=== PATIENT | male | born 1940 | race Caucasian/White ===

== ENCOUNTER → 2016-11-04 | Outpatient (CLI) | payer MEDICARE ==
[~2016-11-04] MED LIST: ACET-93 PO; ACET325T49 PO; ACID1TAB5 PO; ASP81TEC; ASP81TEC PO; ATEN50TA PO; ATN50T PO; ATOR40TA; BENZ100C18 PO; CALC-654 PO; CALC1TAB38 PO; CARB1TAB19 PO; CEFP500T4 PO; CLAR-19 PO; CLD600T; CLIN-62 PO; COLE1TAB PO; COUGH MED; DIVA125T3 PO; DONE10TA41 PO; DOXA4TAB2 PO; DXZS4T; ESCI20TA45 PO; ESOM20CA; FEXO60CA19; FINA5TAB6 PO; GLYC2TAB PO; IMIP50TA4 PO; IPRA3AMP19 IH; KCL20TCR; KCL20TCR PO; LISI40TA PO; LORA1TAB PO; LSNP20T PO; MAGN400T6 PO; MAGNESIUM; METO50TA2 PO; MGX400T; MULT1CAP27 PO; MULT1TAB63; MULT1TAB69 PO; OMEP-10 PO; OXYB10TA; PANT40TA3 PO; POLY17PO23 PO; PRAV40TA PO; PRD20T PO; PRED5TAB PO; PRILOSEC OTC; PRV20T; RMP5C; SIMV20TA3 PO; SUCR1TAB PO; TMSL.4C; TOLTA4; TRAM50TA2 PO; WARF2TAB PO; WARF4TAB PO; WARF4TAB9 PO; WARF5TAB PO; WRF1T; WRF2T PO; WRF3T
[2016-11-04 11:50] LABS: ABG BASE EXCESS 1.6 MMOL/L (-2.5-2.5); ABG HCO3 25 MMOL/L (23-27); ABG OXYGEN SATURATION 97 % (94-100); ABG PCO2 38 MMHG (35-45); ABG PO2 83 MMHG (79-93); ABG TCO2 26.6 MMOL/L (21.0-31.0)
[2016-11-04 11:53] LABS: ABG PH 7.44 (7.37-7.43); PATIENT TEMP 98.6
== END ==
LOC: HH 11:43
PROVIDERS: ATTEND Internal Medicine
DX: R53.1 Weakness (principal)
CPT/HCPCS: 82805

== ENCOUNTER → 2017-03-20 | Outpatient (CLI) | payer MEDICARE ==
[2017-03-20 21:05] LABS: BILIRUBIN,URINE NEGATIVE (NEGATIVE); KETONES,URINE NEGATIVE (NEGATIVE); LEUKOCYTE ESTERASE ,URINE 2+ (NEGATIVE); NITRITE,URINE POSITIVE (NEGATIVE); PH,URINE 5 (5-9); PROTEIN,URINE NEGATIVE (NEGATIVE); UROBILINOGEN,URINE NORMAL (NORMAL)
[2017-03-20 21:12] LABS: WBC,URINE >100 /HPF
== END ==
LOC: LABNPT 21:00
PROVIDERS: ATTEND Internal Medicine
DX: N39.0 Urinary tract infection, site not specified (principal)
CPT/HCPCS: 81000; 87088; 87186

== ENCOUNTER → 2017-05-29 | Outpatient (CLI) | payer MEDICARE ==
[2017-05-29 21:36] LABS: BILIRUBIN,URINE NEGATIVE (NEGATIVE); KETONES,URINE NEGATIVE (NEGATIVE); LEUKOCYTE ESTERASE ,URINE NEGATIVE (NEGATIVE); NITRITE,URINE NEGATIVE (NEGATIVE); PH,URINE 5 (5-9); PROTEIN,URINE NEGATIVE (NEGATIVE); UROBILINOGEN,URINE NORMAL (NORMAL)
[2017-05-29 21:47] LABS: HYALINE CASTS, URINE RARE /LPF; SQUAMOUS EPITHELIAL CELL,UR 25-50 /HPF; WBC,URINE 0-2 /HPF
== END ==
LOC: LABNPT 21:31
PROVIDERS: ATTEND Internal Medicine
DX: R41.82 Altered mental status, unspecified (principal)
CPT/HCPCS: 81000

== ENCOUNTER → 2018-04-12 | Outpatient (CLI) | payer MEDICARE ==
[~2018-04-12] MED LIST changes: -DIVA125T3 PO; +DIVA125T32 PO; +METO50TA15 PO; -METO50TA2 PO
[2018-04-12 19:20] LABS: BILIRUBIN,URINE NEGATIVE (NEGATIVE); CLARITY,URINE CLEAR; COLOR,URINE YELLOW; GLUCOSE, URINE (UA) NEGATIVE (NEGATIVE); KETONES,URINE NEGATIVE (NEGATIVE); LEUKOCYTE ESTERASE ,URINE NEGATIVE (NEGATIVE); NITRITE,URINE NEGATIVE (NEGATIVE); PH,URINE 6 (5-9); PROTEIN,URINE NEGATIVE (NEGATIVE); UROBILINOGEN,URINE NORMAL (NORMAL)
[2018-04-12 19:37] LABS: SQUAMOUS EPITHELIAL CELL,UR RARE /HPF
== END ==
LOC: CVS 19:14
PROVIDERS: ATTEND Internal Medicine
DX: R45.1 Restlessness and agitation (principal)
CPT/HCPCS: 81000

== ENCOUNTER → 2018-09-11 | Outpatient (CLI) | payer MEDICARE ==
[~2018-09-11] MED LIST changes: -POLY17PO23 PO; +POLY17PO31 PO
== END ==
LOC: CVS 12:52
PROVIDERS: ATTEND Family Medicine
DX: R13.10 Dysphagia, unspecified (principal); M62.81 Muscle weakness (generalized); R26.81 Unsteadiness on feet; R41.0 Disorientation, unspecified
CPT/HCPCS: 87804

== ENCOUNTER 2018-09-16 15:43 | Emergency (ER) | payer MEDICARE ==
[~2018-09-16] VITALS: Ht 175.3 cm; Wt 81.6 kg
--- OUTSIDE RECORDS SUMMARY | 2018-09-16 15:51 | XMS REPORT ---
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 Active 074745482950853 Problem Type 2 diabetes mellitus with hyperglycemia E11.65 Active 19359684 Problem Gastroesophageal reflux disease, esophagitis presence not specified K21.9 Active 285038950 Problem Type 2 diabetes mellitus without complications E11.9 Active 711192405 Problem halfway 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 Active 407007628 Problem Parkinson disease G20 Active 53190146 ALLERGIES Substance Reaction Event Type Date Status IVP Dye Unknown Non Drug Allergy May, Active ENCOUNTERS Encounter Location Date Diagnosis Via [facility] [address] [place] [id number] May, 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 [id number], [place] [address] Apr, [facility] [address], [place] [address] Apr, [facility] [address] [id number], [place] [address] Mar, [facility] [address] [id number], [place] [address] Feb, Via [facility] [address] [place] [id number] Feb, Cerebral infarction due to unspecified occlusion or stenosis of unspecified cerebral artery I63.50 ; Type 2 diabetes mellitus without complications E11.9 and 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 [place] [address], [place] [address] December, [place] [address], [place] [address] December, [place] [address], [place] [address] December, [place] [address] [place] [address] December, Type 2 diabetes mellitus with hyperglycemia E11.65 and 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 [place] [address], [place] [address] Oct, [facility] [address] [place] [id number] Oct, Cerebral infarction due to unspecified occlusion or stenosis of unspecified cerebral artery I63.50 ; Type 2 diabetes mellitus without complications E11.9 and Aortic valve replaced Z95.2 [place] [address] [id number], [place] [address] Aug, [facility] [address] [place] [id number] Aug, Type 2 diabetes mellitus without complications E11.9 and Parkinson disease G20 [facility] [address] [place] [id number] May, Cerebral infarction due to unspecified occlusion or stenosis of unspecified cerebral artery I63.50 ; Aortic valve replaced Z95.2 ; Hemorrhagic cerebrovascular accident (CVA) I61.9 ; Arthritis M19.90 ; Type 2 diabetes mellitus without complications E11.9 ; Gastroesophageal reflux disease , esophagitis presence not specified K21.9 and Parkinson disease G20 [facility] [id number] [place] [id number] Apr, [facility] [address] [id number] [id number] Mar, [facility] [address] [place] [id number] Mar, Type 2 diabetes mellitus without complications E11.9 ; Cerebral infarction due to unspecified occlusion or stenosis of unspecified cerebral artery I63.50 ; Aortic valve replaced Z95.2 and Parkinson disease G20 [facility] [address] [id number][place] [address] Feb, [facility] [address] [id number][place] [id number] Feb, [facility] [address] [id number][place] [id number] Feb, [facility] [address] [place] [id number] Jan, Cerebral infarction due to unspecified occlusion or stenosis of unspecified cerebral artery I63.50 ; Type 2 diabetes mellitus without complications E11.9 ; Aortic valve replaced Z95.2 and Gastroesophageal reflux disease, esophagitis presence not specified K21.9 [facility] [address] [facility] [id number], [place] [address] Jan, [facility] [address] [id number][place] [id number] December, [facility] [address] [id number][place] [id number] Nov, [facility] [address] [place] [id number] Nov, Type 2 diabetes mellitus without complications E11.9 [facility] [address] [facility] [id number], [place] [address] Oct, [facility] [address] [id number], [place] [id number] Oct, [facility] [address] [id number][place] [id number] Oct, [facility] [address] [id number], [place] [id number] Oct, [facility] [address] [place], [place] [id number] Oct, Aortic valve replaced Z95.2 ; Hemorrhagic cerebrovascular accident (CVA) I61.9 and Arthritis M19.90 [facility] [address] [id number], [place] [address] Sep, [facility] [address] [id number], [place] [address] Aug, [facility] [address] [id number], [place] [address] Aug, [facility] [address] [place] [id number] Aug, Cerebral infarction due to unspecified occlusion or stenosis of unspecified cerebral artery I63.50 and Aortic valve replaced Z95.2 [facility] [address] [id number], [place] [id number] Aug, [facility] [address] [facility] [id number], [place] [address] Jul, [facility] [address] [facility] [id number], [place] [address] Jul, [facility] [address] [facility] [id number], [place] [address] Jul, [facility] [address] [facility] [id number], [place] [address] Jul, [facility] [address] [place] [id number] Jun, Cerebral infarction due to unspecified occlusion or stenosis of unspecified cerebral artery I63.50 [facility] [address] [place] [id number] Apr, Cerebral infarction due to unspecified occlusion or stenosis of unspecified cerebral artery I63.50 [facility] [address] [id number], [place] [address] Apr, Pain R52 [facility] [address] [facility] [id number], [place] [address] Apr, 2016 Via [facility] [employer] [address] [place] [id number] Apr, Hemorrhagic cerebrovascular accident (CVA) I61.9 [facility] [address] [facility] [id number], [place] [address] Apr, [facility] [address] [facility] [id number], [place] [address] Apr, [facility] [address] [facility] [id number], [place] [address] Mar, [facility] [address] [facility] [id number], [place] [address] Mar, [facility] [address] [place] [id number] Mar, Cerebral infarction due to unspecified occlusion or stenosis of unspecified cerebral artery I63.50 and Aortic valve replaced Z95.2 IMMUNIZATIONS No Known Immunizations SOCIAL HISTORY Never Assessed REASON FOR VISIT Assisted Visit --RITU Diamond PLAN OF CARE Activity Details Follow Up prn Reason: VITAL SIGNS MEDICATIONS Unknown Medications RESULTS No Results PROCEDURES Procedure Date Ordered Result Body Site Stable Visit (10 minutes) May 10, 2018 INSTRUCTIONS MEDICATIONS ADMINISTERED No Known Medications MEDICAL (GENERAL) HISTORY Type Description Date Medical History Stroke Medical History Hypertension Medical History Hypercholesteremia Medical History Parkinson's Medical History BPH Medical History GERD Medical History CABG Medical History Heart VAlve replacement Surgical History CABG (information obatianed from Via [facility] discharge ) Surgical History Heart valve replacement (Information obtained from Via [facility] discharge) Surgical History Bilateral total Knee replacement by Dr. Guido in [place]
--- OUTSIDE RECORDS SUMMARY | 2018-09-16 15:51 | XMS REPORT ---
Author Author EYAL SANCHEZ [facility] Address [address] [place] [address] Care Team Providers Care Parcel Post Clerk Name Role Phone EYAL SANCHEZ Unavailable PROBLEMS ALLERGIES No Information ENCOUNTERS IMMUNIZATIONS No Known Immunizations SOCIAL HISTORY No smoking Hx information available REASON FOR VISIT PLAN OF CARE VITAL SIGNS MEDICATIONS RESULTS No Results PROCEDURES No Known procedures INSTRUCTIONS MEDICATIONS ADMINISTERED No Known Medications MEDICAL (GENERAL) HISTORY
--- OUTSIDE RECORDS SUMMARY | 2018-09-16 15:51 | XMS REPORT ---
Author Author EYAL SANCHEZ Organization [facility] Address [address] [place] [address] Care Team Providers Care Front Desk Manager Name Role Phone EYAL SANCHEZ Unavailable PROBLEMS Type Condition ICD9-CM Code LUT34-MJ Code Onset Dates Condition Status SNOMED Code Problem Hemorrhagic cerebrovascular accident (CVA) I61.9 Active 558226111 Problem Type 2 diabetes mellitus without complications E11.9 Active 981755403 Problem Arthritis M19.90 Active 9913823 Problem Aortic valve replaced Z95.2 Active 8424330094106 Problem Cerebral infarction due to unspecified occlusion or stenosis of unspecified cerebral artery I63.50 Active 037728146 Problem Depressed F32.9 Active 93288701 Problem 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 Active 972496019224759 Problem Parkinson disease G20 Active 88154926 Problem Gastroesophageal reflux disease, esophagitis presence not specified K21.9 Active 809225823 Problem Type 2 diabetes mellitus with hyperglycemia E11.65 Active 05001512 Problem group home 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 Active 030145146 ALLERGIES No Information ENCOUNTERS Encounter Location Date Diagnosis [facility] [address] [facility] [id number] [place] [address] Jul, Depressed F32.9 [facility] [address] [place] [id number] Jun, Medicare annual wellness visit, initial Z00.00 ; Type 2 diabetes mellitus without complications E11.9 ; Cerebral infarction due to unspecified occlusion or stenosis of unspecified cerebral artery I63.50 ; Aortic valve replaced Z95.2 ; Gastroesophageal reflux disease, esophagitis presence not specified K21.9 ; 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 ; History of smoking Z87.891 and Parkinson disease G20 [facility] [address] [place] [id number] May, 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 ; Type 2 diabetes mellitus with hyperglycemia E11.65 and 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 [facility] [address] [facility] [id number] [address] Apr, [facility] [address] [facility] [id number][place] [address] Apr, [facility] [address], [place] [address] Mar, [facility] [address] [facility] [id number], [place] [address] Feb, [facility] [address] [place] [id number] Feb, Cerebral infarction due to unspecified occlusion or stenosis of unspecified cerebral artery I63.50 ; Type 2 diabetes mellitus without complications E11.9 and 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 [place] [address], [place] [address] December, [facility] [address] [id number], [place] [address] December, [facility] [address]00565100[place], [place] [address] December, [facility] [address] [id number], [place] [address] December, Type 2 diabetes mellitus with hyperglycemia E11.65 and 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 [facility] [address] [id number], [place] [address] Oct, [facility] [address] [place] [id number] Oct, Cerebral infarction due to unspecified occlusion or stenosis of unspecified cerebral artery I63.50 ; Type 2 diabetes mellitus without complications E11.9 and Aortic valve replaced Z95.2 [facility] [address] [id number], [place] [address] Aug, [facility] [employer] [facility] [address] [place] [id number] Aug, Type 2 diabetes mellitus without complications E11.9 and Parkinson disease G20 [facility] [address] [place] [id number] May, Cerebral infarction due to unspecified occlusion or stenosis of unspecified cerebral artery I63.50 ; Aortic valve replaced Z95.2 ; Hemorrhagic cerebrovascular accident (CVA) I61.9 ; Arthritis M19.90 ; Type 2 diabetes mellitus without complications E11.9 ; Gastroesophageal reflux disease , esophagitis presence not specified K21.9 and Parkinson disease G20 [facility] [address] [id number] [id number] Apr, [facility] [address] [id number][place] [address] Mar, [facility] [address] [place] [id number] Mar, Type 2 diabetes mellitus without complications E11.9 ; Cerebral infarction due to unspecified occlusion or stenosis of unspecified cerebral artery I63.50 ; Aortic valve replaced Z95.2 and Parkinson disease G20 [facility] [address] [id number][place] [id number] Feb, [facility] [address] [id number][place] [id number] Feb, [facility] [address] [id number][place] [address] Feb, [facility] [address] [place] [id number] Jan, Cerebral infarction due to unspecified occlusion or stenosis of unspecified cerebral artery I63.50 ; Type 2 diabetes mellitus without complications E11.9 ; Aortic valve replaced Z95.2 and Gastroesophageal reflux disease, esophagitis presence not specified K21.9 [facility] [address] [facility] [id number], [place] [address] Jan, [facility] [address] [id number], [place] [id number] December, [facility] [address] [id number][place] [id number] Nov, [facility] [address] [place] [id number] Nov, Type 2 diabetes mellitus without complications E11.9 [facility] [address] [facility] [id number], [place] [address] Oct, [facility] [place] [address] [id number] [id number] Oct, [facility] [place] [address] [id number][place] [id number] Oct, [facility] [place] [id number], [place] [id number] Oct, [facility] [address] [place] [id number] Oct, Aortic valve replaced Z95.2 ; Hemorrhagic cerebrovascular accident (CVA) I61.9 and Arthritis M19.90 [facility] [address]00565100[place], [place] [address] Sep, [facility] [address] [id number], [place] [address] Aug, [facility] [address]00565100[place], [place] [address] Aug, [facility] [address] [place] [address] Aug, Cerebral infarction due to unspecified occlusion or stenosis of unspecified cerebral artery I63.50 and Aortic valve replaced Z95.2 [facility] [place] [id number], [place] [address] Aug, [facility] [address] [facility] [id number], [place] [address] Jul, [facility] [address] [facility] [id number], [place] [address] Jul, [facility] [address] [id number], [place] [address] Jul, [facility] [address]65100[place], [place] [address] Jul, [facility] [address] [place] [id number] Jun, Cerebral infarction due to unspecified occlusion or stenosis of unspecified cerebral artery I63.50 [facility] [address] [place] [id number] Apr, Cerebral infarction due to unspecified occlusion or stenosis of unspecified cerebral artery I63.50 [facility] [address]00565100[place], [place] [address] Apr, Pain R52 [facility] [address] [place] [address] Apr, [facility] [address] [place] [id number] Apr, Hemorrhagic cerebrovascular accident (CVA) I61.9 [place] [address]00565100[place], [place] [address] 08 Apr, 2016 [facility] [address]00565100[place], [place] [address] Apr, [facility] [address]00565100[place], [place] [address] Mar, [facility] [address]00565100[place], [place] [address] Mar, Via [facility] [address] [place] [id number] Mar, Cerebral infarction due to unspecified occlusion or stenosis of unspecified cerebral artery I63.50 and Aortic valve replaced Z95.2 IMMUNIZATIONS No Known Immunizations SOCIAL HISTORY Never Assessed REASON FOR VISIT medication change--[place] PLAN OF CARE VITAL SIGNS MEDICATIONS Medication Instructions Dosage Frequency Start Date End Date Duration Status Lexapro 10 MG Orally Once a day 0.5 tablet 24h Active RESULTS No Results PROCEDURES No Known procedures INSTRUCTIONS MEDICATIONS ADMINISTERED No Known Medications MEDICAL (GENERAL) HISTORY Type Description Date Medical History Stroke Medical History Hypertension Medical History Hypercholesteremia Medical History Parkinson's Medical History BPH Medical History GERD Medical History CABG Medical History Heart VAlve replacement Surgical History CABG (information obatianed from [facility] discharge ) Surgical History Heart valve replacement (Information obtained from [facility] discharge) Surgical History Bilateral total Knee replacement by Dr. Guido in [place]
--- OUTSIDE RECORDS SUMMARY | 2018-09-16 15:51 | XMS REPORT ---
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 Active 962430709182658 Problem Type 2 diabetes mellitus with hyperglycemia E11.65 Active 82969972 Problem Gastroesophageal reflux disease, esophagitis presence not specified K21.9 Active 575477436 Problem Type 2 diabetes mellitus without complications E11.9 Active 752443334 Problem detention 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 Active 970272843 Problem Parkinson disease G20 Active 07517585 ALLERGIES No Information ENCOUNTERS Encounter Location Date Diagnosis [place] [address] [address] Apr, [place] [address] [place] [id number] [place] [address] Mar, [place] [id number] [place] [address] Feb, 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 [id number], [place] [address] December, [facility] [address] [address] December, [facility] [address] [place] [id number], [place] [address] December, Type 2 diabetes mellitus with hyperglycemia E11.65 and detention 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 [place] [address] [place] [id number] [address] Oct, [facility] [address] [place] [id number] Oct, Cerebral infarction due to unspecified occlusion or stenosis of unspecified cerebral artery I63.50 ; Type 2 diabetes mellitus without complications E11.9 and Aortic valve replaced Z95.2 [place] [address] [place] [id number] [address] Aug, [facility] [address] [place] [id number] Aug, Type 2 diabetes mellitus without complications E11.9 and Parkinson disease G20 [facility] [address] [place] [id number] May, Cerebral infarction due to unspecified occlusion or stenosis of unspecified cerebral artery I63.50 ; Aortic valve replaced Z95.2 ; Hemorrhagic cerebrovascular accident (CVA) I61.9 ; Arthritis M19.90 ; Type 2 diabetes mellitus without complications E11.9 ; Gastroesophageal reflux disease , esophagitis presence not specified K21.9 and Parkinson disease G20 [facility] [address] [id number] [address] Apr, [facility] [id number] [address] Mar, [facility] [address] [place] [id number] Mar, Type 2 diabetes mellitus without complications E11.9 ; Cerebral infarction due to unspecified occlusion or stenosis of unspecified cerebral artery I63.50 ; Aortic valve replaced Z95.2 and Parkinson disease G20 [facility] [address] [id number] [address] Feb, [facility] [id number] [address] Feb, [facility] [address] [id number][place] [address] Feb, [facility] [address] [place] [id number] Jan, Cerebral infarction due to unspecified occlusion or stenosis of unspecified cerebral artery I63.50 ; Type 2 diabetes mellitus without complications E11.9 ; Aortic valve replaced Z95.2 and Gastroesophageal reflux disease, esophagitis presence not specified K21.9 [facility] [address] [place] [id number], [place] [address] Jan, [facility] [id number] [address] December, [facility] [id number] [address] Nov, [facility] [address] [place] [id number] Nov, Type 2 diabetes mellitus without complications E11.9 [facility] [address] [place] [id number], [place] [address] Oct, [facility] [address] [id number][place] [address] Oct, [facility] [address] [place] [id number] [address] Oct, [facility] [address] [id number][place] [address] Oct, [facility] [address] [place] [id number] Oct, Aortic valve replaced Z95.2 ; Hemorrhagic cerebrovascular accident (CVA) I61.9 and Arthritis M19.90 [facility] [address] [place] [id number], [place] [address] Sep, [facility] [address] [id number], [place] [address] Aug, [facility] [address] [id number], [place] [address] Aug, [facility] [employer] [facility] [address] [place] [id number] Aug, Cerebral infarction due to unspecified occlusion or stenosis of unspecified cerebral artery I63.50 and Aortic valve replaced Z95.2 [facility] [address] [id number], [place] [address] Aug, [facility] [address] [id number], [place] [address] Jul, [facility] [address] [id number], [place] [address] Jul, [facility] [address] [id number] [address] Jul, [facility] [address] [id number], [place] [address] Jul, [facility] [address] [place] [id number] Jun, Cerebral infarction due to unspecified occlusion or stenosis of unspecified cerebral artery I63.50 [facility] [address] [place] [id number] Apr, Cerebral infarction due to unspecified occlusion or stenosis of unspecified cerebral artery I63.50 [facility] [address] [id number], [place] [address] Apr, Pain R52 [facility] [address] [id number], [place] [address] Apr, [facility] [address] [place] [id number] Apr, Hemorrhagic cerebrovascular accident (CVA) I61.9 [facility] [address] [id number], [place] [address] 08 Apr, 2016 [facility] [address] [facility] [id number] [place] [address] Apr, [facility] [address] [facility] [id number], [place] [address] Mar, [facility] [address] [facility] [id number] [place] [address] Mar, [facility] [address] [place] [id number] Mar, Cerebral infarction due to unspecified occlusion or stenosis of unspecified cerebral artery I63.50 and Aortic valve replaced Z95.2 IMMUNIZATIONS No Known Immunizations SOCIAL HISTORY Never Assessed REASON FOR VISIT refill prn Tramadol PLAN OF CARE VITAL SIGNS MEDICATIONS Medication Instructions Dosage Frequency Start Date End Date Duration Status Tramadol HCl 50 mg Orally every 6 hrs 1 tablet as needed 6h Mar, Active RESULTS No Results PROCEDURES No Known procedures INSTRUCTIONS MEDICATIONS ADMINISTERED No Known Medications MEDICAL (GENERAL) HISTORY Type Description Date [facility] Surgical History Bilateral total Knee replacement by Dr. Guido in [place]
--- OUTSIDE RECORDS SUMMARY | 2018-09-16 15:51 | XMS REPORT ---
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 [address] [place] [id number] [place] [address] Apr, 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 [address]00565100[place], [place] [address] December, [place] [address]00565100[place], [place] [address] December, [place] [address]65100[place], [place] [address] December, Type 2 diabetes mellitus with hyperglycemia E11.65 and group home 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 [place] [address]65[address], [place] [address] Oct, [facility] [address] [place] [id number] Oct, Cerebral infarction due to unspecified occlusion or stenosis of unspecified cerebral artery I63.50 ; Type 2 diabetes mellitus without complications E11.9 and Aortic valve replaced Z95.2 [place] [address] [place] [id number], [place] [address] Aug, [facility] [address] [place] [id number] Aug, Type 2 diabetes mellitus without complications E11.9 and Parkinson disease G20 [facility] [address] [place] [id number] May, Cerebral infarction due to unspecified occlusion or stenosis of unspecified cerebral artery I63.50 ; Aortic valve replaced Z95.2 ; Hemorrhagic cerebrovascular accident (CVA) I61.9 ; Arthritis M19.90 ; Type 2 diabetes mellitus without complications E11.9 ; Gastroesophageal reflux disease , esophagitis presence not specified K21.9 and Parkinson disease G20 [place] [id number], [place] [address] Apr, [place] [id number], [place] [address] Mar, [facility] [address] [place] [id number] 07 Aug, 2017 Type 2 diabetes mellitus without complications E11.9 ; Cerebral infarction due to unspecified occlusion or stenosis of unspecified cerebral artery I63.50 ; Aortic valve replaced Z95.2 and Parkinson disease G20 [facility] [address] [id number] [address] Feb, [facility] [address] [id number], [place] [address] Feb, [facility] [id number] [address] Feb, [facility] [address] [place] [id number] Jan, Cerebral infarction due to unspecified occlusion or stenosis of unspecified cerebral artery I63.50 ; Type 2 diabetes mellitus without complications E11.9 ; Aortic valve replaced Z95.2 and Gastroesophageal reflux disease, esophagitis presence not specified K21.9 [facility] [address] [facility] [id number], [place] [address] Jan, [facility] [address] [id number][place] [address] December, [facility] [address] [id number][place] [address] Nov, [facility] [address] [place] [id number] Nov, Type 2 diabetes mellitus without complications E11.9 [facility] [address] [facility] [id number], [place] [address] Oct, [facility] [address] [id number][place] [address] Oct, [facility] [address] [id number][place] [address] Oct, [facility] [address] [id number][place] [address] Oct, [facility] [address] [place] [id number] Oct, Aortic valve replaced Z95.2 ; Hemorrhagic cerebrovascular accident (CVA) I61.[address] [facility] [address] [id number], [place] [address] 14 Sep, 2016 [facility] [address] [facility] [id number][place] [address] Aug, [facility] [address] [facility] [id number], [place] [address] Aug, [facility] [employer] [facility] [address] [place] [id number] Aug, Cerebral infarction due to unspecified occlusion or stenosis of unspecified cerebral artery I63.50 and Aortic valve replaced Z95.2 [facility] [address] [id number], [place] [address] Aug, [facility] [address] [facility] [id number][place] [address] Jul, [facility] [address] [facility] [id number], [place] [address] Jul, [facility] [address] [id number], [place] [address] Jul, [facility] [address] [facility] [id number], [place] [address] Jul, [facility] [address] [place] [id number] Jun, Cerebral infarction due to unspecified occlusion or stenosis of unspecified cerebral artery I63.50 [facility] [address] [place] [id number] Apr, Cerebral infarction due to unspecified occlusion or stenosis of unspecified cerebral artery I63.50 [facility] [address] [id number], [place] [address] Apr, [address]52 [facility] [address] [facility] [id number][place] [address] Apr, [facility] [address] [place] [id number] Apr, Hemorrhagic cerebrovascular accident (CVA) I61.9 [facility] [address] [facility] [id number] [place] [address] Apr, [facility] [address] [facility] [id number][place] [address] Apr, [facility] [address] [facility] [id number][place] [address] Mar, [facility] [address] [facility] [id number], [place] [address] Mar, [facility] [address] [place] [id number] Mar, Cerebral infarction due to unspecified occlusion or stenosis of unspecified cerebral artery I63.50 and Aortic valve replaced Z95.2 IMMUNIZATIONS No Known Immunizations SOCIAL HISTORY Never Assessed REASON FOR VISIT UA PLAN OF CARE VITAL SIGNS MEDICATIONS Unknown Medications RESULTS No Results PROCEDURES No Known procedures INSTRUCTIONS MEDICATIONS ADMINISTERED No Known Medications MEDICAL (GENERAL) HISTORY Type Description Date Surgical History CABG (information obatianed from [facility] discharge ) Surgical History [facility] Surgical History Bilateral total Knee replacement by Dr. Guido in [place]
--- OUTSIDE RECORDS SUMMARY | 2018-09-16 15:51 | XMS REPORT | Clinical Summary ---
Author Author [facility] Organization [facility] Address Unknown Phone Unavailable Care Team Providers Care Filter Worker Name Role Phone Akshat Aldana MD PCP Henrry Alexander MD Unavailable Gissell Soliz APRN Unavailable Source Comments Some departments are not documenting in the electronic medical record. If you do not see the information that you expected, contact Release of Information in the Health Information Management department at [phone] for further assistance in locating additional records.[facility] Allergies Comments Active Allergy Reactions Severity Noted Date Said hives, but he didn't see really anything wrong... The doctor's said hives Iodinated Contrast- Oral UNKNOWN 06/01/2011 And Iv Dye Medications End Date Status Medication Sig Dispensed Refills Start Date Active warfarin (COUMADIN) 5 mg Take 5 mg by 0 tablet mouth daily. Active Magnesium Oxide 500 mg Take 2 Tabs 0 Tab by mouth four times a day while awake as needed. Active CALCIUM CARBONATE Take 3 Tabs 0 (CALCIUM 500 PO) by mouth three times daily. Active colestipol (COLESTID) 1 Take 1 g by 0 gram tablet mouth twice daily. Active MULTIVITAMIN PO Take by 0 mouth daily. Active budesonide/formoterol(+) Inhale 2 0 (SYMBICORT) 80-4.5 Puffs by mcg/Actuation HFAA mouth twice inhalation daily. Active pantoprazole DR(+) Take 40 mg by 0 (PROTONIX) 40 mg tablet mouth daily. Active ALBUTEROL IN Inhale 2 0 Puffs by mouth as Needed. Active LIPASE/PROTEASE/AMYLASE Take 1 Tab by 0 (PANCREASE PO) mouth three times daily. Active ACETAMINOPHEN (TYLENOL Take 1,000 mg 0 PO) by mouth as Needed. 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 Peptic ulcer disease 06/01/2011 S/P aortic valve replacement 06/01/2011 Electrolyte imbalance 06/01/2011 Family History Medical History Relation Name Comments Heart Disease Father Hypertension Father Cancer-Colon Mother Cancer-Colon Sister Relation Name Status Comments Father Mother Sister Social History Date Tobacco Use Types Packs/Day Years Used Former Smoker Cigarettes 1 40 Alcohol Use Drinks/Week oz/Week Comments No Sex Assigned at Date Recorded Not on file Industry Job Start Date Occupation Not on file Not on file Not on file Travel End Travel History Travel Start No recent travel history available. Last Filed Vital Signs Time Taken Vital Sign Reading 06/01/2011 2:14 PM CDT Blood Pressure 131/72 06/01/2011 2:14 PM CDT Pulse 81 06/01/2011 2:14 PM CDT Temperature 36.6 C (97.9 F) - Respiratory Rate - 06/01/2011 2:14 PM CDT Oxygen Saturation 99% - Inhaled Oxygen - Concentration 06/01/2011 2:14 PM CDT Weight 80.7 kg (178 lb) 06/01/2011 2:14 PM CDT Height 174.6 cm (5' 8.75") 06/01/2011 2:14 PM CDT Body Mass Index 26.48 Plan of Treatment Health Maintenance Due Date Last Done Comments PHYSICAL (COMPREHENSIVE) 1949 EXAM DTAP/TDAP VACCINES (1 - 1960 Tdap) COLORECTAL CANCER 1992 SCREENING SHINGLES RECOMBINANT 1992 VACCINE (1 of 2) PNEUMONIA (PCV13/PPSV23) 2007 VACCINES (1 of 2 - PCV13) INFLUENZA VACCINE 03/09/2018 Results Not on filefrom Last 3 Months
--- OUTSIDE RECORDS SUMMARY | 2018-09-16 15:52 | XMS REPORT ---
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 Active 669728593624101 Problem Type 2 diabetes mellitus with hyperglycemia E11.65 Active 83608711 Problem Gastroesophageal reflux disease, esophagitis presence not specified K21.9 Active 646153048 Problem Type 2 diabetes mellitus without complications E11.9 Active 593611328 Problem long-term 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 Active 838371652 Problem Parkinson disease G20 Active 44154947 ALLERGIES No Information ENCOUNTERS Encounter Location Date Diagnosis [place] [address], [place] [address] Apr, [facility] [address], [place] [address] Mar, [facility] [address] [place] [address] Feb, [facility] [address] [place] [id number] Feb, Cerebral infarction due to unspecified occlusion or stenosis of unspecified cerebral artery I63.50 ; Type 2 diabetes mellitus without complications E11.9 and 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 [facility] [address], [place] [address] December, [place] [address] [facility] [id number], [place] [address] December, [facility] [address] [place] [id number] December, [facility] [id number], [place] [address] December, Type 2 diabetes mellitus with hyperglycemia E11.65 and long-term 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 [place] [id number] [address] Oct, Via [facility] [address] [place] [id number] Oct, Cerebral infarction due to unspecified occlusion or stenosis of unspecified cerebral artery I63.50 ; Type 2 diabetes mellitus without complications E11.9 and Aortic valve replaced Z95.2 [place] [id number], [place] [address] Aug, [facility] [address] [place] [id number] Aug, Type 2 diabetes mellitus without complications E11.9 and Parkinson disease G20 [facility] [address] [place] [id number] May, Cerebral infarction due to unspecified occlusion or stenosis of unspecified cerebral artery I63.50 ; Aortic valve replaced Z95.2 ; Hemorrhagic cerebrovascular accident (CVA) I61.9 ; Arthritis M19.90 ; Type 2 diabetes mellitus without complications E11.9 ; Gastroesophageal reflux disease , esophagitis presence not specified K21.9 and Parkinson disease G20 [facility] [address] [id number] [address] Apr, [facility] [address] [id number] [id number] Mar, [facility] [address] [place] [id number] Mar, Type 2 diabetes mellitus without complications E11.9 ; Cerebral infarction due to unspecified occlusion or stenosis of unspecified cerebral artery I63.50 ; Aortic valve replaced Z95.2 and Parkinson disease G20 [facility] [address] [id number] [address] Feb, [facility] [id number] [address] Feb, [facility] [address] [id number] [address] Feb, [facility] [facility] [address] [place] [id number] Jan, Cerebral infarction due to unspecified occlusion or stenosis of unspecified cerebral artery I63.50 ; Type 2 diabetes mellitus without complications E11.9 ; Aortic valve replaced Z95.2 and Gastroesophageal reflux disease, esophagitis presence not specified K21.9 [facility] [id number], [place] [address] Jan, [facility] [id number] [address] December, [facility] [id number], [place] [address] Nov, [facility] [address] [place] [id number] Nov, Type 2 diabetes mellitus without complications E11.9 [facility] [id number], [place] [address] Oct, [facility] [id number], [place] [id number] Oct, [facility] [address] [place] [address] [id number], [place] [address] Oct, [facility] [address] [id number], [place] [address] Oct, [facility] [address] [place] [id number] Oct, Aortic valve replaced Z95.2 ; Hemorrhagic cerebrovascular accident (CVA) I61.9 and Arthritis M19.90 [facility] [id number], [place] [address] Sep, [facility] [address] [id number], [place] [address] Aug, [facility] [address] [id number], [place] [address] Aug, [facility] [address] [place] [id number] Aug, Cerebral infarction due to unspecified occlusion or stenosis of unspecified cerebral artery I63.50 and Aortic valve replaced Z95.2 [facility] [address] [id number], [place] [address] Aug, [facility] [address] [id number][place] Jul, [facility] [address] [id number], [place]356[place] Jul, [facility] [address] [id number], [place] 1877[place] Jul, [facility] [address] [id number], [place]127[place] Jul, [facility] [address] [place] [id number] Jun, Cerebral infarction due to unspecified occlusion or stenosis of unspecified cerebral artery I63.50 [facility] [address] [place] [id number] Apr, Cerebral infarction due to unspecified occlusion or stenosis of unspecified cerebral artery I63.50 [facility] [address] [id number], [place] Apr, Pain R52 [facility] [address] [id number], [place] [address] Apr, [facility] [address] [place] [id number] Apr, Hemorrhagic cerebrovascular accident (CVA) I61.9 [facility] [address] [id number], [place] 387924[address] Apr, 2016 [facility] [address] [facility] [id number] [place] [address] Apr, [facility] [address] [facility] [id number], [place] [address] Mar, [facility] [address] [facility] [id number], [place] [address] Mar, [facility] [address] [place] [id number] Mar, Cerebral infarction due to unspecified occlusion or stenosis of unspecified cerebral artery I63.50 and Aortic valve replaced Z95.2 IMMUNIZATIONS No Known Immunizations SOCIAL HISTORY Never Assessed REASON FOR VISIT Routine visit PLAN OF CARE Activity Details Follow Up 2 Months Reason: VITAL SIGNS MEDICATIONS Unknown Medications RESULTS No Results PROCEDURES Procedure Date Ordered Result Body Site Minor complication (15 mins) January 18, 2017 INSTRUCTIONS MEDICATIONS ADMINISTERED No Known Medications MEDICAL (GENERAL) HISTORY Type Description Date Surgical History CABG (information obatianed from [facility] discharge ) Surgical History Heart valve replacement (Information obtained from [facility] discharge) Surgical History Bilateral total Knee replacement by Dr. Guido in [place]
--- OUTSIDE RECORDS SUMMARY | 2018-09-16 15:52 | XMS REPORT ---
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 Active 203430392365118 Problem Type 2 diabetes mellitus with hyperglycemia E11.65 Active 25138051 Problem Gastroesophageal reflux disease, esophagitis presence not specified K21.9 Active 600494473 Problem Type 2 diabetes mellitus without complications E11.9 Active 939093954 Problem [facility] 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 Active 559945986 Problem Parkinson disease G20 Active 45698115 ALLERGIES No Information ENCOUNTERS Encounter Location Date Diagnosis [facility] [address] [address] Mar, [facility] [address]005[address] [address] Feb, Via [facility] [address] [place] [id number] Feb, Cerebral infarction due to unspecified occlusion or stenosis of unspecified cerebral artery I63.50 ; Type 2 diabetes mellitus without complications E11.9 and 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 [facility] [address] [address] December, [facility] [address] [place] [address] December, [place] [address] [facility] [id number] December, [place] [address] [place] [id number] December, Type 2 diabetes mellitus with hyperglycemia E11.65 and [facility] 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 [place] [address] [facility] [id number] [place]606[place] [address] Oct, Via [employer] [address] [place] [id number] Oct, Cerebral infarction due to unspecified occlusion or stenosis of unspecified cerebral artery I63.50 ; Type 2 diabetes mellitus without complications E11.9 and Aortic valve replaced Z95.2 [place] [address] [facility] [id number] [place] 8[place]- [address] Aug, Via [employer] [facility] [address] [place] [id number] Aug, Type 2 diabetes mellitus without complications E11.9 and Parkinson disease G20 [facility] [employer] [facility] [address] [place] [id number] May, Cerebral infarction due to unspecified occlusion or stenosis of unspecified cerebral artery I63.50 ; Aortic valve replaced Z95.2 ; Hemorrhagic cerebrovascular accident (CVA) I61.9 ; Arthritis M19.90 ; Type 2 diabetes mellitus without complications E11.9 ; Gastroesophageal reflux disease , esophagitis presence not specified K21.9 and Parkinson disease G20 [facility] [address] [id number] [place] [address] Apr, [facility] [address] [id number] [place] [address] Mar, [facility] [employer] [address] [place] [id number] Mar, Type 2 diabetes mellitus without complications E11.9 ; Cerebral infarction due to unspecified occlusion or stenosis of unspecified cerebral artery I63.50 ; Aortic valve replaced Z95.2 and Parkinson disease G20 [facility] [address] [id number] [place] [address] Feb, [facility] [address] [id number] [place] [address] Feb, [facility] [id number] [place] [address] Feb, [facility] [employer] [address] [place] [id number] Jan, Cerebral infarction due to unspecified occlusion or stenosis of unspecified cerebral artery I63.50 ; Type 2 diabetes mellitus without complications E11.9 ; Aortic valve replaced Z95.2 and Gastroesophageal reflux disease, esophagitis presence not specified K21.9 [facility] [address] [place] [address] [id number] [address] Jan, [facility] [id number] [place] [address] December, [facility] [id number] [address] Nov, [facility] [employer] [address] [place] [id number] Nov, Type 2 diabetes mellitus without complications E11.9 [facility] [address] [place] [address] [id number] [address]46 Oct, [facility] [id number] [place] [address] Oct, [facility] [id number] [place] [address] Oct, [facility] [address] [place] [id number] [place] [address] Oct, [facility] [employer] [address] [place] [id number] Oct, Aortic valve replaced Z95.2 ; Hemorrhagic cerebrovascular accident (CVA) I61.9 and Arthritis M19.90 [facility] [address] [facility] [id number] [place] Sep, [facility] [address] [place] [address] [id number] Aug, [facility] [address] [id number] [place] [address]- [address] Aug, Via [employer] [address] [place] [id number] Aug, Cerebral infarction due to unspecified occlusion or stenosis of unspecified cerebral artery I63.50 and Aortic valve replaced Z95.2 [facility] [address] [id number] [place] [address] Aug, [facility] [address] [id number] [place] [address]- [address] Jul, [facility] [address] [id number] [place] [address]- [address] Jul, [facility] [address] [id number] [place] [address]- [address] Jul, [facility] [address] [id number] [place] [address]- [address] Jul, Via [employer] [address] [place] [id number] Jun, Cerebral infarction due to unspecified occlusion or stenosis of unspecified cerebral artery I63.50 [facility] [employer] [address] [place] [id number] Apr, Cerebral infarction due to unspecified occlusion or stenosis of unspecified cerebral artery I63.50 [facility] [address] [id number] [place] [address]- 9397 Apr, Pain R52 [facility] [address] [id number] [place] [address]- [address] Apr, [facility] [employer] [address] [place] [id number] Apr, Hemorrhagic cerebrovascular accident (CVA) I61.9 [facility] [address] [id number] [place] 3670[place]- [address] 08 Apr, 2016 [facility] [address] [id number] [place] [address] [address] Apr, [facility] [address] [facility] [id number] [place] [address]- [address] Mar, [facility] [address] [facility] [id number] [place] [address] Mar, Via [facility] [address] [place] [address] Mar, Cerebral infarction due to unspecified occlusion or stenosis of unspecified cerebral artery I63.50 and Aortic valve replaced Z95.2 IMMUNIZATIONS No Known Immunizations SOCIAL HISTORY Never Assessed REASON FOR VISIT Order PLAN OF CARE VITAL SIGNS MEDICATIONS Unknown Medications RESULTS No Results PROCEDURES No Known procedures INSTRUCTIONS MEDICATIONS ADMINISTERED No Known Medications MEDICAL (GENERAL) HISTORY Type Description Date Surgical History [facility] Surgical History [facility] ([facility]) Surgical History Bilateral total Knee replacement by Dr. Guido in [place]
--- OUTSIDE RECORDS SUMMARY | 2018-09-16 15:52 | XMS REPORT ---
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 Active 534886845611741 Problem Type 2 diabetes mellitus with hyperglycemia E11.65 Active 44731673 Problem Gastroesophageal reflux disease, esophagitis presence not specified K21.9 Active 972068654 Problem Type 2 diabetes mellitus without complications E11.9 Active 721012019 Problem intermediate 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 Active 078391375 Problem Parkinson disease G20 Active 17792525 ALLERGIES No Information ENCOUNTERS Encounter Location Date Diagnosis [place] [address]005[address], [place] [address] Mar, [facility] [address] [place] [address] Feb, Via [facility] [address] [place] [id number] Feb, Cerebral infarction due to unspecified occlusion or stenosis of unspecified cerebral artery I63.50 ; Type 2 diabetes mellitus without complications E11.9 and 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 [facility] [address]005[address]100[place], [place] [address]- [address] December, [facility] [address] [place] [address] [id number] [place] [address] 6934 December, [facility] [address] [facility] [id number]- [address] December, [facility] [address] [place] [id number] [address] December, Type 2 diabetes mellitus with hyperglycemia E11.65 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 [place] [address] [facility] [id number], [place] [address]- [address] Oct, Via [employer] [address] [place] [id number] Oct, Cerebral infarction due to unspecified occlusion or stenosis of unspecified cerebral artery I63.50 ; Type 2 diabetes mellitus without complications E11.9 and Aortic valve replaced Z95.2 [place] [address] [place] [id number], [place] [address]46 Aug, [facility] [address] [place] [id number] Aug, Type 2 diabetes mellitus without complications E11.9 and Parkinson disease G20 [facility] [address] [place] [id number] May, Cerebral infarction due to unspecified occlusion or stenosis of unspecified cerebral artery I63.50 ; Aortic valve replaced Z95.2 ; Hemorrhagic cerebrovascular accident (CVA) I61.9 ; Arthritis M19.90 ; Type 2 diabetes mellitus without complications E11.9 ; Gastroesophageal reflux disease , esophagitis presence not specified K21.9 and Parkinson disease G20 [facility] [address] [id number], [place] [address] Apr, [facility] [address] [id number], [place] [id number] Mar, [facility] [address] [place] [address] Mar, Type 2 diabetes mellitus without complications E11.9 ; Cerebral infarction due to unspecified occlusion or stenosis of unspecified cerebral artery I63.50 ; Aortic valve replaced Z95.2 and Parkinson disease G20 [facility] [address] [id number], [place] [address] Feb, [facility] [address] [id number], [place] [address] Feb, [facility] [id number], [place] [address] Feb, [facility] [address] [place] [id number] Jan, Cerebral infarction due to unspecified occlusion or stenosis of unspecified cerebral artery I63.50 ; Type 2 diabetes mellitus without complications E11.9 ; Aortic valve replaced Z95.2 and Gastroesophageal reflux disease, esophagitis presence not specified K21.9 [facility] [address] [id number], [place] [address]- [address] Jan, [facility] [id number], [place] [address] December, [facility] [id number], [place] [address] Nov, [facility] [address] [place] [id number] Nov, Type 2 diabetes mellitus without complications E11.9 [facility] [address] [id number], [place] [address]- 2546 Oct, [facility] [id number], [place] [id number] Oct, [facility] [id number], [place] [address] Oct, [facility] [address] [place] [address] [id number], [place] [address] Oct, [facility] [address] [place] [id number] Oct, Aortic valve replaced Z95.2 ; Hemorrhagic cerebrovascular accident (CVA) I61.9 and Arthritis M19.90 [facility] [address] [facility] [id number], [place] [address]- [address] Sep, [facility] [address] [id number]- 2143 Aug, [facility] [address] [id number], [place] [address]- [address] Aug, Via [employer] [address] [place] [id number] Aug, Cerebral infarction due to unspecified occlusion or stenosis of unspecified cerebral artery I63.50 and Aortic valve replaced Z95.2 [facility] [address] [id number], [place] [id number] Aug, [facility] [address] [facility] [id number], [place] [address]- [address] Jul, [facility] [address] [id number], [place] [address]- 4076 Jul, [facility] [address] [id number], [place] [address]- 3976 Jul, [facility] [address]005[address], [place] [address]- [address] Jul, [facility] [employer] [address] [place] [address] Jun, Cerebral infarction due to unspecified occlusion or stenosis of unspecified cerebral artery I63.50 [facility] [address] [place], [place] [id number] Apr, Cerebral infarction due to unspecified occlusion or stenosis of unspecified cerebral artery I63.50 [facility] [address] [id number], [place]83[place]- [address] Apr, Pain R52 [facility] [address] [facility] [id number], [place] [address]- [address]37 Apr, Via [employer] [address] [place] [id number] Apr, Hemorrhagic cerebrovascular accident (CVA) I61.9 [facility] [address] [id number], [place]138[place]- [address] Apr, [facility] [address] [facility] [id number], [place] [address]6066489- [address]97 Apr, [facility] [address] [facility] [id number] [place] [address] Mar, [facility] [address] [facility] [id number], [place] [address]674- 4432 Mar, Via [facility] [address] [place] [id number] Mar, Cerebral infarction due to unspecified occlusion or stenosis of unspecified cerebral artery I63.50 and Aortic valve replaced Z95.2 IMMUNIZATIONS No Known Immunizations SOCIAL HISTORY Never Assessed REASON FOR VISIT Controlled Med Refill/Tramadol PLAN OF CARE VITAL SIGNS MEDICATIONS Unknown Medications RESULTS No Results PROCEDURES No Known procedures INSTRUCTIONS MEDICATIONS ADMINISTERED No Known Medications MEDICAL (GENERAL) HISTORY Type Description Date Surgical History CABG (information obatianed from Via [facility] discharge ) Surgical History [facility] Surgical History Bilateral total Knee replacement by Dr. Guido in [place]
--- OUTSIDE RECORDS SUMMARY | 2018-09-16 15:52 | XMS REPORT ---
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 Active 121339220974205 Problem Type 2 diabetes mellitus with hyperglycemia E11.65 Active 65032811 Problem Gastroesophageal reflux disease, esophagitis presence not specified K21.9 Active 222844021 Problem Type 2 diabetes mellitus without complications E11.9 Active 784647565 Problem custodial 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 Active 809014140 Problem Parkinson disease G20 Active 09301503 ALLERGIES No Information ENCOUNTERS Encounter Location Date Diagnosis [place] [id number] [address] Apr, [place] [address] [place] [id number] [place] [address] Mar, [place] [id number] [place] [address] Feb, Via [facility] [address] [place] [id number] Feb, Cerebral infarction due to unspecified occlusion or stenosis of unspecified cerebral artery I63.50 ; Type 2 diabetes mellitus without complications E11.9 and 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 [id number] [address] December, [facility] [address] [address] December, [facility] [address] [place] [id number], [place] [address] December, Type 2 diabetes mellitus with hyperglycemia E11.65 and custodial 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 [place] [id number] [address] Oct, Via [facility] [address] [place] [id number] Oct, Cerebral infarction due to unspecified occlusion or stenosis of unspecified cerebral artery I63.50 ; Type 2 diabetes mellitus without complications E11.9 and Aortic valve replaced Z95.2 [place] [address] [place] [id number] [address] Aug, Via [facility] [address] [place] [id number] Aug, Type 2 diabetes mellitus without complications E11.9 and Parkinson disease G20 [facility] [address] [place] [id number] May, Cerebral infarction due to unspecified occlusion or stenosis of unspecified cerebral artery I63.50 ; Aortic valve replaced Z95.2 ; Hemorrhagic cerebrovascular accident (CVA) I61.9 ; Arthritis M19.90 ; Type 2 diabetes mellitus without complications E11.9 ; Gastroesophageal reflux disease , esophagitis presence not specified K21.9 and Parkinson disease G20 [facility] [address] [place] [id number] [id number] Apr, [facility] [id number] [address] Mar, [facility] [address] [place] [id number] Mar, Type 2 diabetes mellitus without complications E11.9 ; Cerebral infarction due to unspecified occlusion or stenosis of unspecified cerebral artery I63.50 ; Aortic valve replaced Z95.2 and Parkinson disease G20 [facility] [address] [id number] [id number] Feb, [facility] [id number] [address] Feb, [facility] [address] [id number][place] [id number] Feb, Via [facility] [employer] [facility] [facility] [address] [place] [id number] Jan, Cerebral infarction due to unspecified occlusion or stenosis of unspecified cerebral artery I63.50 ; Type 2 diabetes mellitus without complications E11.9 ; Aortic valve replaced Z95.2 and Gastroesophageal reflux disease, esophagitis presence not specified K21.9 [facility] [address] [place] [id number], [place] [address] Jan, [facility] [id number] [id number] December, [facility] [id number] [id number] Nov, [facility] [address] [place] [id number] Nov, Type 2 diabetes mellitus without complications E11.9 [facility] [address] [id number], [place] [address] Oct, [facility] [address] [id number][place] [id number] Oct, [facility] [address] [place] [id number] [address] Oct, [facility] [address] [id number][place] [id number] Oct, [facility] [address] [place] [id number] Oct, Aortic valve replaced Z95.2 ; Hemorrhagic cerebrovascular accident (CVA) I61.9 and Arthritis M19.90 [facility] [address] [place] [id number] [address] Sep, [facility] [address] [id number], [place] [address] Aug, [facility] [address] [id number], [place] [address] Aug, Via [facility] [employer] [facility] [facility] [address] [place] [id number] Aug, Cerebral infarction due to unspecified occlusion or stenosis of unspecified cerebral artery I63.50 and Aortic valve replaced Z95.2 [facility] [address] [id number], [place] [address] Aug, [facility] [address] [id number], [place] [address] Jul, [facility] [address] [id number], [place] [address] Jul, [facility] [address] [id number], [place] Jul, [facility] [address] [id number], [place] [address] Jul, Via [facility] [address] [place] [id number] Jun, Cerebral infarction due to unspecified occlusion or stenosis of unspecified cerebral artery I63.50 [facility] [address] [place] [id number] Apr, Cerebral infarction due to unspecified occlusion or stenosis of unspecified cerebral artery I63.50 [facility] [address] [id number], [place] [address] Apr, Pain R52 [facility] [address] [id number], [place] [address] Apr, [facility] [address] [place] [id number] Apr, Hemorrhagic cerebrovascular accident (CVA) I61.9 [facility] [address] [id number], [place] [address] Apr, 2016 [facility] [address] [facility] [id number] [place] [address] Apr, [facility] [address] [facility] [id number], [place] [address] Mar, [facility] [address] [facility] [id number] [place] [address] Mar, Via [facility] [address] [place] [id number] Mar, Cerebral infarction due to unspecified occlusion or stenosis of unspecified cerebral artery I63.50 and Aortic valve replaced Z95.2 IMMUNIZATIONS No Known Immunizations SOCIAL HISTORY Never Assessed REASON FOR VISIT INR results PLAN OF CARE VITAL SIGNS MEDICATIONS Unknown [...] total Knee replacement by Dr. Guido in [place]
--- OUTSIDE RECORDS SUMMARY | 2018-09-16 15:52 | XMS REPORT ---
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 Active 161085224576585 Problem Type 2 diabetes mellitus with hyperglycemia E11.65 Active 89567829 Problem Gastroesophageal reflux disease, esophagitis presence not specified K21.9 Active 802411196 Problem Type 2 diabetes mellitus without complications E11.9 Active 276741026 Problem retirement 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 Active 582001327 Problem Parkinson disease G20 Active 30115270 ALLERGIES No Information ENCOUNTERS Encounter Location Date Diagnosis [facility] [address], [place] [address] Feb, Via [facility] [address] [place] [id number] Feb, Cerebral infarction due to unspecified occlusion or stenosis of unspecified cerebral artery I63.50 ; Type 2 diabetes mellitus without complications E11.9 and 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 [facility] [address], [place] [address] December, [facility] [address] [place] [id number] [place] [address] December, [facility] [address] [place] [address]- [address] December, [facility] [address] [facility] [id number][place] [address] December, Type 2 diabetes mellitus with hyperglycemia E11.65 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 [facility] [address] [facility] [id number], [place] [address] Oct, Via [facility] [address] [place] [id number] Oct, Cerebral infarction due to unspecified occlusion or stenosis of unspecified cerebral artery I63.50 ; Type 2 diabetes mellitus without complications E11.9 and Aortic valve replaced Z95.2 [facility] [address] [facility] [id number], [place] [address] Aug, [facility] [address] [place] [id number] Aug, Type 2 diabetes mellitus without complications E11.9 and Parkinson disease G20 [facility] [address] [place] [id number] May, Cerebral infarction due to unspecified occlusion or stenosis of unspecified cerebral artery I63.50 ; Aortic valve replaced Z95.2 ; Hemorrhagic cerebrovascular accident (CVA) I61.9 ; Arthritis M19.90 ; Type 2 diabetes mellitus without complications E11.9 ; Gastroesophageal reflux disease , esophagitis presence not specified K21.9 and Parkinson disease G20 [facility] [address] [id number][place] [address] Apr, [facility] [address] [id number][place] [id number] Mar, [facility] [address] [place] [id number] Mar, Type 2 diabetes mellitus without complications E11.9 ; Cerebral infarction due to unspecified occlusion or stenosis of unspecified cerebral artery I63.50 ; Aortic valve replaced Z95.2 and Parkinson disease G20 [facility] [address] [id number][place] [id number] Feb, [facility] [address] [id number][place] [id number] Feb, [facility] [address] [id number], [place] [address] Feb, [facility] [address] [place] [id number] Jan, Cerebral infarction due to unspecified occlusion or stenosis of unspecified cerebral artery I63.50 ; Type 2 diabetes mellitus without complications E11.9 ; Aortic valve replaced Z95.2 and Gastroesophageal reflux disease, esophagitis presence not specified K21.9 [facility] [address], [place] [address] Jan, [facility] [id number], [place] [id number] December, [facility] [id number], [place] [address] Nov, [facility] [address] [place] [id number] Nov, Type 2 diabetes mellitus without complications E11.9 [facility] [address] [place] [address] [id number], [place] [address] Oct, [facility] [id number], [place] [address] Oct, [facility] [id number], [place] [address] Oct, [facility] [id number], [place] [address] Oct, [facility] [address] [place] [id number] Oct, Aortic valve replaced Z95.2 ; Hemorrhagic cerebrovascular accident (CVA) I61.9 and Arthritis M19.90 [facility] [address] [id number], [place] [address] Sep, [facility] [address] [id number], [place] [address] Aug, [facility] [address] [id number], [place] [address] Aug, [facility] [address] [place] [id number] Aug, Cerebral infarction due to unspecified occlusion or stenosis of unspecified cerebral artery I63.50 and Aortic valve replaced Z95.2 [facility] [address] [id number], [place] [id number] Aug, [facility] [address] [id number], [place] [address] Jul, [facility] [address] [id number], [place] [address] Jul, [facility] [address] [id number], [place] [address] Jul, [facility] [address] [facility] [id number][place] [address] Jul, [facility] [address] [place] [id number] Jun, Cerebral infarction due to unspecified occlusion or stenosis of unspecified cerebral artery I63.50 [facility] [address] [place] [id number] Apr, Cerebral infarction due to unspecified occlusion or stenosis of unspecified cerebral artery I63.50 [facility] [address] [id number], [place] [address] Apr, Pain R52 [facility] [address] [facility] [id number], [place] [address] Apr, [facility] [address] [place] [id number] Apr, Hemorrhagic cerebrovascular accident (CVA) I61.9 [facility] [address] [id number], [place] [address] Apr, [facility] [address] [facility] [id number], [place] [address] Apr, [facility] [address] [facility] [id number], [place] [address] Mar, [facility] [address] [facility] [id number] GOOD [place] [id number] Mar, Via [facility] [address] [place] [id number] Mar, Cerebral infarction due to unspecified occlusion or stenosis of unspecified cerebral artery I63.50 and Aortic valve replaced Z95.2 IMMUNIZATIONS No Known Immunizations SOCIAL HISTORY Never Assessed REASON FOR VISIT start pepcid PLAN OF CARE VITAL SIGNS MEDICATIONS Medication Instructions Dosage Frequency Start Date End Date Duration Status Pepcid 20 MG Orally Once a day 1 tablet at bedtime 24h December, 30 day(s) Active RESULTS No Results PROCEDURES No Known procedures INSTRUCTIONS MEDICATIONS ADMINISTERED No Known Medications MEDICAL (GENERAL) HISTORY Type Description Date Surgical History CABG (information obatianed from [facility] discharge ) Surgical History Heart valve replacement (Information obtained from [facility] discharge) Surgical History Bilateral total Knee replacement by Dr. Guido in [place]
--- OUTSIDE RECORDS SUMMARY | 2018-09-16 15:52 | XMS REPORT ---
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 Active 025835789445859 Problem Type 2 diabetes mellitus with hyperglycemia E11.65 Active 04308491 Problem Gastroesophageal reflux disease, esophagitis presence not specified K21.9 Active 758653119 Problem Type 2 diabetes mellitus without complications E11.9 Active 257935650 Problem shelter 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 Active 489236918 Problem Parkinson disease G20 Active 46429255 ALLERGIES No Information ENCOUNTERS Encounter Location Date Diagnosis [place] [address] [address] Apr, [place] [address] [place] [id number] [place] [address] Mar, [place] [address] [place] [address] Feb, Via [facility] [address] [place] [id number] Feb, Cerebral infarction due to unspecified occlusion or stenosis of unspecified cerebral artery I63.50 ; Type 2 diabetes mellitus without complications E11.9 and 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 [id number] [place] [address] December, [facility] [address] [address] December, [facility] [address] [place] [address] [id number] [address] December, Type 2 diabetes mellitus with hyperglycemia E11.65 and shelter 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 [place] [address] [place] [id number] [address] Oct, Via [facility] [address] [place] [id number] Oct, Cerebral infarction due to unspecified occlusion or stenosis of unspecified cerebral artery I63.50 ; Type 2 diabetes mellitus without complications E11.9 and Aortic valve replaced Z95.2 [place] [address] [place] [id number] [address] Aug, Via [facility] [address] [place] [id number] Aug, Type 2 diabetes mellitus without complications E11.9 and Parkinson disease G20 [facility] [address] [place] [id number] May, Cerebral infarction due to unspecified occlusion or stenosis of unspecified cerebral artery I63.50 ; Aortic valve replaced Z95.2 ; Hemorrhagic cerebrovascular accident (CVA) I61.9 ; Arthritis M19.90 ; Type 2 diabetes mellitus without complications E11.9 ; Gastroesophageal reflux disease , esophagitis presence not specified K21.9 and Parkinson disease G20 [facility] [address] [id number] [place] [id number] Apr, [facility] [id number] [place] [address] Mar, Via [facility] [address] [place] [id number] Mar, Type 2 diabetes mellitus without complications E11.9 ; Cerebral infarction due to unspecified occlusion or stenosis of unspecified cerebral artery I63.50 ; Aortic valve replaced Z95.2 and Parkinson disease G20 [facility] [address] [id number] [place] [id number] Feb, [facility] [id number] [place] [id number] Feb, [facility] [address] [id number] [place] [id number] Feb, [facility] [employer] [address] [place] [id number] Jan, Cerebral infarction due to unspecified occlusion or stenosis of unspecified cerebral artery I63.50 ; Type 2 diabetes mellitus without complications E11.9 ; Aortic valve replaced Z95.2 and Gastroesophageal reflux disease, esophagitis presence not specified K21.9 [facility] [address] [id number] [address] Jan, [facility] [id number] [place] [address] December, [facility] [id number] [place] [id number] Nov, [facility] [address] [place] [id number] Nov, Type 2 diabetes mellitus without complications E11.9 [facility] [address] [place] [address] [id number] [address] Oct, [facility] [address] [id number] [place] [id number] Oct, [facility] [address] [place] [address] [id number] [place] [id number] Oct, [facility] [address] [id number] [place] [id number] Oct, Via [facility] [address] [place] [id number] Oct, Aortic valve replaced Z95.2 ; Hemorrhagic cerebrovascular accident (CVA) I61.9 and Arthritis M19.90 [facility] [address] [place] [address] [id number] [address] Sep, [facility] [address] [id number] [place] [address] Aug, [facility] [address] [id number] [place] [address] Aug, Via [employer] [address] [place] [id number] Aug, Cerebral infarction due to unspecified occlusion or stenosis of unspecified cerebral artery I63.50 and Aortic valve replaced Z95.2 [facility] [address] [id number] [place] [id number] Aug, [facility] [address] [id number] [place] [address] Jul, [facility] [address] [id number] [place] [address] Jul, [facility] [address] [id number] [place] Jul, [facility] [address] [id number] [place] [address] Jul, Via [facility] [address] [place] [id number] Jun, Cerebral infarction due to unspecified occlusion or stenosis of unspecified cerebral artery I63.50 Via [employer] [facility] [employer] [facility] [address] [place] [id number] Apr, Cerebral infarction due to unspecified occlusion or stenosis of unspecified cerebral artery I63.50 [facility] [address] [id number] [place] [address] Apr, Pain R52 [facility] [address] [id number] [place] [address] Apr, Via [employer] [facility] [address] [place] [id number] Apr, Hemorrhagic cerebrovascular accident (CVA) I61.9 [facility] [address] [id number] [place] Apr, 2016 [facility] [address] [facility] [id number] [place] [address] Apr, [facility] [address] [facility] [id number] [place]676[place] [address] Mar, [facility] [address] [facility] [id number] [place] [address] Mar, Via [facility] [address] [place] [id number] Mar, Cerebral infarction due to unspecified occlusion or stenosis of unspecified cerebral artery I63.50 and Aortic valve replaced Z95.2 IMMUNIZATIONS No Known Immunizations SOCIAL HISTORY Never Assessed REASON FOR VISIT Retirement Visit PLAN OF CARE Activity Details Follow Up prn Reason: VITAL SIGNS MEDICATIONS Medication Instructions Dosage Frequency Start Date End Date Duration Status Multivitamin Adult - Orally Once a day 1 tablet 24h Active Pepcid 20 MG Orally Once a day 1 tablet at bedtime 24h December, 30 day(s) Active MiraLax - as directed Nov, Active Sinemet 25-100 MG Orally 4 times a day 1 tablet 6h Active Dulaglutide 0.75 MG/0.5ML Subcutaneous once weekly as directed December, Active Atorvastatin Calcium 10 MG Orally Once a day 1 tablet 24h Jul, 30 day(s) Active Claritin 10 MG 10 MG BY MOUTH EVERY DAY FOR ALLERGIES Active Calcium Carbonate-Vitamin D 500-200 MG-UNIT Orally twice a day 1 tablet with food 12h Active Colace 100 mg Orally Once a day 1 capsule 24h Active Protonix 40 MG Orally Once a day 1 tablet 24h Oct, 30 day(s) Active Coumadin 4 MG Orally Once a day 1 tablet 24h Jan, Active Nuedexta 20-10 MG Orally 2 times a day 1 capsule 12h Aug, 30 day(s) Active MetFORMIN HCl ER 500 mg Orally twice a day 2 tablets 12h Oct, Active GlipiZIDE 10 MG Orally Once a day 1 tablet 24h December, 30 day(s) Active Aspirin EC 81 MG Orally Once a day 1 tablet 24h Active Tamsulosin HCl 0.4 MG Orally Once a day 1 capsule 24h Active Aricept 10 MG Orally Once a day 1 tablet at bedtime 24h Active Proscar 5 MG Orally Once a day 1 tablet 24h Active Lantus 100 UNIT/ML Subcutaneous at bedtime 25 units Active Trulicity 0.75 MG/0.5ML Subcutaneous once weekly Active Tylenol 325 MG Orally every 4 hrs 1 tablets as needed 4h Active Lexapro 20 MG Orally Once a day 0.5 tablet 24h Active Mirtazapine 15 MG Orally Once a day 1 tablet at bedtime 24h Active RESULTS No Results PROCEDURES Procedure Date Ordered Result Body Site Minor complication (15 mins) February 22, 2018 INSTRUCTIONS MEDICATIONS ADMINISTERED No Known Medications MEDICAL (GENERAL) HISTORY Type Description Date Surgical History CABG (information obatianed from [facility] discharge ) Surgical History Heart valve replacement (Information obtained from [facility] discharge) Surgical History Bilateral total Knee replacement by Dr. Guido in [place]
--- OUTSIDE RECORDS SUMMARY | 2018-09-16 15:53 | XMS REPORT ---
Author Author EYAL SANCHEZ [facility] Address [address] [place] [address] Care Team Providers Care Product Inspection Supervisor Name Role Phone EYAL SANCHEZ Unavailable PROBLEMS Type Condition ICD9-CM Code PSW27-ZN Code Onset Dates Condition Status SNOMED Code Problem Cerebral infarction due to unspecified occlusion or stenosis of unspecified cerebral artery I63.50 Active 506553368 Problem Hemorrhagic cerebrovascular accident (CVA) I61.9 Active 227039949 Problem Aortic valve replaced Z95.2 Active 5010223355023 Problem Type 2 diabetes mellitus with hyperglycemia E11.65 Active 78043847 Problem nursing home 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 Active 416780140 Problem Type 2 diabetes mellitus without complications E11.9 Active 199165467 Problem Arthritis M19.90 Active 3885773 Problem Parkinson disease G20 Active 03969447 Problem Gastroesophageal reflux disease, esophagitis presence not specified K21.9 Active 289353330 ALLERGIES No Information ENCOUNTERS Encounter Location Date Diagnosis [place] [address] [place] [id number] [place] [address] December, [facility] [id number] [place] [address]- [address] December, [facility] [id number] [place] [address]- 2602 December, [facility] [id number] [place] [address]- 18[address] December, Type 2 diabetes mellitus with hyperglycemia E11.65 and nursing home 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 [place] [id number] [place] [address]- [address] Oct, Via [facility] [address] [place] [id number] Oct, Cerebral infarction due to unspecified occlusion or stenosis of unspecified cerebral artery I63.50 ; Type 2 diabetes mellitus without complications E11.9 and Aortic valve replaced Z95.2 [facility] [address] [facility] [id number] [place] [address] Aug, [facility] [address] [place] [id number] Aug, Type 2 diabetes mellitus without complications E11.9 and Parkinson disease G20 [facility] [address] [place] [id number] May, Cerebral infarction due to unspecified occlusion or stenosis of unspecified cerebral artery I63.50 ; Aortic valve replaced Z95.2 ; Hemorrhagic cerebrovascular accident (CVA) I61.9 ; Arthritis M19.90 ; Type 2 diabetes mellitus without complications E11.9 ; Gastroesophageal reflux disease , esophagitis presence not specified K21.9 and Parkinson disease G20 [place] [address] [id number] [place] [id number] Apr, [facility] [address] [id number] [address] Mar, [facility] [address] [place] [id number] Mar, Type 2 diabetes mellitus without complications E11.9 ; Cerebral infarction due to unspecified occlusion or stenosis of unspecified cerebral artery I63.50 ; Aortic valve replaced Z95.2 and Parkinson disease G20 [facility] [address] [id number] [place] [address] Feb, [facility] [address] [id number][place] [address] Feb, [facility] [address] [id number][place] [address] Feb, [facility] [address] [place] [id number] Jan, Cerebral infarction due to unspecified occlusion or stenosis of unspecified cerebral artery I63.50 ; Type 2 diabetes mellitus without complications E11.9 ; Aortic valve replaced Z95.2 and Gastroesophageal reflux disease, esophagitis presence not specified K21.9 [facility] [address] [facility] [id number], [place] [address] Jan, [facility] [address] [id number], [place] [address] December, [facility] [id number], [place] [address] Nov, Via [facility] [address] [place] [id number] Nov, Type 2 diabetes mellitus without complications E11.9 [facility] [address] [facility] [id number], [place] [address] Oct, [facility] [id number], [place] [address] Oct, [facility] [id number], [place] [address] Oct, [facility] [address] [place] [id number] [address] Oct, [facility] [address] [place] [id number] Oct, Aortic valve replaced Z95.2 ; Hemorrhagic cerebrovascular accident (CVA) I61.9 and Arthritis M19.90 [facility] [address] [facility] [id number], [place] [address] Sep, [facility] [address] [place] [id number], [place] [address] Aug, [facility] [address] [facility] [id number], [place] [address] Aug, [facility] [address] [place] [id number] Aug, Cerebral infarction due to unspecified occlusion or stenosis of unspecified cerebral artery I63.50 and Aortic valve replaced Z95.2 [facility] [id number], [place] [id number] Aug, [facility] [address] [place] [address] [id number] [address] Jul, [facility] [address] [facility] [id number], [place] [address] Jul, [facility] [address] [facility] [id number], [place] [address]- [address] Jul, [facility] [address] [facility] [id number], [place] [address] Jul, [facility] [address] [place] [id number] Jun, Cerebral infarction due to unspecified occlusion or stenosis of unspecified cerebral artery I63.50 [facility] [address] [place] [id number] Apr, Cerebral infarction due to unspecified occlusion or stenosis of unspecified cerebral artery I63.50 [facility] [address] [facility] [id number], [place] [address] Apr, Pain R52 [facility] [address]00565100[place], [place] [address] Apr, [facility] [address] [place] [id number] Apr, Hemorrhagic cerebrovascular accident (CVA) I61.9 [facility] [address] [facility] [id number], [place] [address] Apr, [facility] [address] [facility] [id number], [place] [address]- [address] Apr, [facility] [address] [facility] [id number], [place] [address] Mar, [facility] [address] [facility] [id number], [place] [address] Mar, [facility] [address] [place] [id number] Mar, Cerebral infarction due to unspecified occlusion or stenosis of unspecified cerebral artery I63.50 and Aortic valve replaced Z95.2 IMMUNIZATIONS No Known Immunizations SOCIAL HISTORY Never Assessed REASON FOR VISIT Routine Visit PLAN OF CARE Activity Details Follow Up prn Reason: VITAL SIGNS MEDICATIONS Medication Instructions Dosage Frequency Start Date End Date Duration Status MiraLax - as directed Nov, Active Nuedexta 20-10 MG Orally 2 times a day 1 capsule 12h Aug, 30 day(s) Active Aspirin EC 81 MG Orally Once a day 1 tablet 24h Active Famotidine 20 MG Orally Once a day 1 tablet at bedtime 24h Active Lantus 100 UNIT/ML Subcutaneous at bedtime 25 units Active Colace 100 mg Orally Once a day 1 capsule 24h Active Coumadin 4 MG Orally Once a day 1 tablet 24h Jan, Active Multivitamin Adult - Orally Once a day 1 tablet 24h Active Proscar 5 MG Orally Once a day 1 tablet 24h Active Tamsulosin HCl 0.4 MG Orally Once a day 1 capsule 24h Active Sinemet 25-100 MG Orally 4 times a day 1 tablet 6h Active Tylenol 325 MG Orally every 4 hrs 1 tablets as needed 4h Active GlipiZIDE 10 MG Orally Once a day 1 tablet 24h December, 30 day(s) Active Aricept 10 MG Orally Once a day 1 tablet at bedtime 24h Active Mirtazapine 15 MG Orally Once a day 1 tablet at bedtime 24h Active Claritin 10 MG 10 MG BY MOUTH EVERY DAY FOR ALLERGIES Active Calcium Carbonate-Vitamin D 500-200 MG-UNIT Orally twice a day 1 tablet with food 12h Active Atorvastatin Calcium 10 MG Orally Once a day 1 tablet 24h Jul, 30 day(s) Active MetFORMIN HCl ER 500 mg Orally twice a day 2 tablets 12h Oct, Active Lexapro 20 MG Orally Once a day 0.5 tablet 24h Active RESULTS No Results PROCEDURES Procedure Date Ordered Result Body Site Stable Visit (10 minutes) Aug 17, 2017 INSTRUCTIONS MEDICATIONS ADMINISTERED No Known Medications MEDICAL (GENERAL) HISTORY Type Description Date Surgical History CABG (information obatianed from [facility] discharge ) Surgical History Heart valve replacement (Information obtained from [facility] discharge) Surgical History Bilateral total Knee replacement by Dr. Guido in [place]
--- OUTSIDE RECORDS SUMMARY | 2018-09-16 15:53 | XMS REPORT ---
Author Author EYAL SANCHEZ [facility] Address [address] [place] [address] Care Team Providers Care Senior Radiation Protection Technician Name Role Phone EYAL SANCHEZ Unavailable PROBLEMS Type Condition ICD9-CM Code CCG70-DI Code Onset Dates Condition Status SNOMED Code Problem Aortic valve replaced Z95.2 Active 2110123030320 Problem Arthritis M19.90 Active 2454470 Problem Hemorrhagic cerebrovascular accident (CVA) I61.9 Active 831643681 Problem Cerebral infarction due to unspecified occlusion or stenosis of unspecified cerebral artery I63.50 Active 131593559 Problem 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 Active 466395721016703 Problem Type 2 diabetes mellitus with hyperglycemia E11.65 Active 15773574 Problem Gastroesophageal reflux disease, esophagitis presence not specified K21.9 Active 081803072 Problem Type 2 diabetes mellitus without complications E11.9 Active 955715319 Problem [facility] 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 Active 689450601 Problem Parkinson disease G20 Active 38743050 ALLERGIES No Information ENCOUNTERS Encounter Location Date Diagnosis [facility] [address] [place] [id number] Feb, Cerebral infarction due to unspecified occlusion or stenosis of unspecified cerebral artery I63.50 ; Type 2 diabetes mellitus without complications E11.9 and 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 [facility] [address] [facility] [id number] [address] December, [facility] [address] [address] December, [facility] [address] [address] December, [facility] [address] [id number] [address] December, Type 2 diabetes mellitus with hyperglycemia E11.65 and [facility] 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 [facility] [address] [facility] [id number] [address] Oct, [facility] [address] [place] [id number] Oct, Cerebral infarction due to unspecified occlusion or stenosis of unspecified cerebral artery I63.50 ; Type 2 diabetes mellitus without complications E11.9 and Aortic valve replaced Z95.2 [facility] [address] [facility] [id number], [place] [address] Aug, [facility] [address] [place] [id number] Aug, Type 2 diabetes mellitus without complications E11.9 and Parkinson disease G20 [facility] [address] [place] [id number] May, Cerebral infarction due to unspecified occlusion or stenosis of unspecified cerebral artery I63.50 ; Aortic valve replaced Z95.2 ; Hemorrhagic cerebrovascular accident (CVA) I61.9 ; Arthritis M19.90 ; Type 2 diabetes mellitus without complications E11.9 ; Gastroesophageal reflux disease , esophagitis presence not specified K21.9 and Parkinson disease G20 [facility] [address] [id number] [id number] Apr, [facility] [address] [id number] [id number] Mar, [facility] [address] [place] [id number] Mar, Type 2 diabetes mellitus without complications E11.9 ; Cerebral infarction due to unspecified occlusion or stenosis of unspecified cerebral artery I63.50 ; Aortic valve replaced Z95.2 and Parkinson disease G20 [facility] [place] [address] [id number] [id number] Feb, [facility] [place] [address] [id number] [id number] Feb, [facility] [place] [address] [id number] [id number] Feb, [facility] [address] [place] [id number] Jan, Cerebral infarction due to unspecified occlusion or stenosis of unspecified cerebral artery I63.50 ; Type 2 diabetes mellitus without complications E11.9 ; Aortic valve replaced Z95.2 and Gastroesophageal reflux disease, esophagitis presence not specified K21.9 [facility] [address] [facility] [id number], [place] [address] Jan, [facility] [place] [address] [id number] [id number] December, [facility] [place] [id number] [id number] Nov, [facility] [address] [place] [id number] Nov, Type 2 diabetes mellitus without complications E11.9 [facility] [address] [id number] [address] Oct, [facility] [place] [id number] [id number] Oct, [facility] [place] [id number] [id number] Oct, [facility] [id number] [id number] Oct, [facility] [address] [place] [id number] Oct, Aortic valve replaced Z95.2 ; Hemorrhagic cerebrovascular accident (CVA) I61.9 and Arthritis M19.90 [facility] [address] [facility] [id number], [place] [address] Sep, [facility] [address] [facility] [id number], [place] [address] Aug, [facility] [address] [facility] [id number], [place] [address] Aug, [facility] [address] [place] [id number] Aug, Cerebral infarction due to unspecified occlusion or stenosis of unspecified cerebral artery I63.50 and Aortic valve replaced Z95.2 [facility] [address] [id number] [id number] Aug, [facility] [address] [facility] [id number] [address] Jul, [facility] [address] [facility] [id number] [address] Jul, [facility] [address] [facility] [id number][place] [address] Jul, [facility] [address] [facility] [id number] [address] Jul, [facility] [address] [place] [id number] Jun, Cerebral infarction due to unspecified occlusion or stenosis of unspecified cerebral artery I63.50 [facility] [address] [place] [id number] Apr, Cerebral infarction due to unspecified occlusion or stenosis of unspecified cerebral artery I63.50 [facility] [address] [facility] [id number], [place] [address] Apr, Pain R52 [facility] [address] [facility] [id number], [place] [address] Apr, [facility] [address] [place] [id number] Apr, Hemorrhagic cerebrovascular accident (CVA) I61.9 [facility] [address] [id number], [place] [address] Apr, 2016 [facility] [address] [facility] [id number][place] [address] Apr, [facility] [address] [facility] [id number] Mar, [facility] [address] [facility] [id number] [address] Mar, [facility] [address] [place] [id number] Mar, 2016 Cerebral infarction due to unspecified occlusion or stenosis of unspecified cerebral artery I63.50 and Aortic valve replaced Z95.2 IMMUNIZATIONS No Known Immunizations SOCIAL HISTORY Never Assessed REASON FOR VISIT routine visit PLAN OF CARE Activity Details Follow Up prn Reason: VITAL SIGNS MEDICATIONS Medication Instructions Dosage Frequency Start Date End Date Duration Status Atorvastatin Calcium 10 MG Orally Once a day 1 tablet 24h Jul, 30 day(s) Active Aspirin EC 81 MG Orally Once a day 1 tablet 24h Active Claritin 10 MG 10 MG BY MOUTH EVERY DAY FOR ALLERGIES Active MiraLax - as directed Nov, Active Nuedexta 20-10 MG Orally 2 times a day 1 capsule 12h Aug, 30 day(s) Active Coumadin 4 MG Orally Once a day 1 tablet 24h Jan, Active Calcium Carbonate-Vitamin D 500-200 MG-UNIT Orally twice a day 1 tablet with food 12h Active Colace 100 mg Orally Once a day 1 capsule 24h Active Lexapro 20 MG Orally Once a day 0.5 tablet 24h Active Lantus 100 UNIT/ML Subcutaneous at bedtime 25 units Active MetFORMIN HCl ER 500 mg Orally twice a day 2 tablets 12h Oct, Active GlipiZIDE 10 MG Orally Once a day 1 tablet 24h December, 30 day(s) Active Sinemet 25-100 MG Orally 4 times a day 1 tablet 6h Active Tamsulosin HCl 0.4 MG Orally Once a day 1 capsule 24h Active Proscar 5 MG Orally Once a day 1 tablet 24h Active Multivitamin Adult - Orally Once a day 1 tablet 24h Active Mirtazapine 15 MG Orally Once a day 1 tablet at bedtime 24h Active Tylenol 325 MG Orally every 4 hrs 1 tablets as needed 4h Active Aricept 10 MG Orally Once a day 1 tablet at bedtime 24h Active Famotidine 20 MG Orally Once a day 1 tablet at bedtime 24h Active RESULTS No Results PROCEDURES Procedure Date Ordered Result Body Site Stable Visit (10 minutes) October 12, 2017 INSTRUCTIONS MEDICATIONS ADMINISTERED No Known Medications MEDICAL (GENERAL) HISTORY Type Description Date Surgical History [facility] Surgical History [facility] ([facility]) Surgical History Bilateral total Knee replacement by Dr. Guido in [place]
--- OUTSIDE RECORDS SUMMARY | 2018-09-16 15:53 | XMS REPORT ---
Author VINCENT Gomez [facility] [employer] Address Unknown Phone Unavailable Care Team Providers Care Associate Embalmer/Funeral Director Name Role Phone VINCENT WHEAT CP Unavailable Allergies, Adverse Reactions, Alerts Substance Reaction Event Type IVP Dye Info Not Available Non Drug Allergy Problems No Known Problems Medications Medication Code System Code Instructions Start Date End Date Status Dosage Tylenol [facility] [address]-95 325 MG Orally every 4 hrs 1 tablets as needed Coumadin [facility] [address]-83 4 MG Orally Wednesday, Wednesday, , Wednesday and Wednesday 1 tablet PredniSONE [facility] [address]-45 5 MG Orally Once a day 1 tablet Colestid [facility] [address]-66 1 GM Orally twice a day 1 tablets Protonix [facility] [address]-86 40 MG Orally Once a day 1 tablet Calcium Carbonate-Vitamin D [facility] [address]-46 500-200 MG-UNIT Orally twice a day 1 tablet with food Proscar [facility] [address]-01 5 MG Orally Once a day 1 tablet Lexapro [facility] [address]-27 20 MG Orally Once a day 0.5 tablet Sinemet [facility] [address]-88 25-100 MG Orally 4 times a day 1 tablet Cardura [facility] [address]-11 4 MG Orally Once a day 1 tablet Zocor [facility] [address]-30 20 MG Orally Once a day 1 tablet in the evening Coumadin [facility] [address]-19 5 mg Orally every Wednesday and Wednesday 1 tablet Depakote [facility] [address]-70 125 MG Orally Once a day 1 tablet Multivitamin Adult [facility] [address] - Orally Once a day 1 tablet Aspirin EC [facility] [address]-89 81 MG Orally Once a day 1 tablet Carafate [facility] [address]-34 1 GM Orally 4 times a day as needed 1 tablet on an empty stomach Aricept [facility] [address]-84 10 MG Orally Once a day 1 tablet at bedtime Results No Known Results Summary Purpose eClinicalWorks Submission
--- OUTSIDE RECORDS SUMMARY | 2018-09-16 15:53 | XMS REPORT ---
Author Author [facility] ROWE 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
--- OUTSIDE RECORDS SUMMARY | 2018-09-16 15:53 | XMS REPORT ---
Author Author VINCENT WHEAT [facility] Address [address] [place] [address] Care Team Providers Care Instrumentation And Controls Technician Name Role Phone VINCENT WHEAT Unavailable PROBLEMS Type Condition ICD9-CM Code [id number] Code Onset Dates Condition Status SNOMED Code Problem Hemorrhagic cerebrovascular accident (CVA) I61.9 Active 613136303 Problem Cerebral infarction due to unspecified occlusion or stenosis of unspecified cerebral artery I63.50 Active 805523048 Problem Aortic valve replaced Z95.2 Active 6998599134151 ALLERGIES Unknown Allergies SOCIAL HISTORY No smoking Hx information available PLAN OF CARE VITAL SIGNS MEDICATIONS Unknown Medications RESULTS No Results PROCEDURES No Known procedures IMMUNIZATIONS No Known Immunizations
--- OUTSIDE RECORDS SUMMARY | 2018-09-16 15:53 | XMS REPORT ---
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
--- OUTSIDE RECORDS SUMMARY | 2018-09-16 15:53 | XMS REPORT ---
Author Author VINCENT WHEAT 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
--- OUTSIDE RECORDS SUMMARY | 2018-09-16 15:53 | XMS REPORT ---
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 Active 478510787682840 Problem Type 2 diabetes mellitus with hyperglycemia E11.65 Active 54787948 Problem Gastroesophageal reflux disease, esophagitis presence not specified K21.9 Active 162672909 Problem Type 2 diabetes mellitus without complications E11.9 Active 247388698 Problem retirement 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 Active 845617264 Problem Parkinson disease G20 Active 84249915 ALLERGIES No Information ENCOUNTERS Encounter Location Date Diagnosis [facility] [place], [facility] [address] [place] [id number] Feb, Cerebral infarction due to unspecified occlusion or stenosis of unspecified cerebral artery I63.50 ; Type 2 diabetes mellitus without complications E11.9 and 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 [facility] [address] [facility] [id number], [place] [address] December, [facility] [address], [place] [address] December, [facility] [address]65[address], [place] [address] December, [facility] [address] [id number], [place] [address] December, Type 2 diabetes mellitus with hyperglycemia E11.65 and retirement 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 [facility] [address] [facility] [id number], [place] [address] Oct, [facility] [address] [place] [id number] Oct, Cerebral infarction due to unspecified occlusion or stenosis of unspecified cerebral artery I63.50 ; Type 2 diabetes mellitus without complications E11.9 and Aortic valve replaced Z95.2 [facility] [address] [facility] [id number], [place] [address] Aug, [facility] [address] [place] [id number] Aug, Type 2 diabetes mellitus without complications E11.9 and Parkinson disease G20 [facility] [place] [facility] [address] [place] [id number] May, Cerebral infarction due to unspecified occlusion or stenosis of unspecified cerebral artery I63.50 ; Aortic valve replaced Z95.2 ; Hemorrhagic cerebrovascular accident (CVA) I61.9 ; Arthritis M19.90 ; Type 2 diabetes mellitus without complications E11.9 ; Gastroesophageal reflux disease , esophagitis presence not specified K21.9 and Parkinson disease G20 [facility] [address] [id number][place] [id number] Apr, [facility] [address] [id number][place] [id number] Mar, [facility] [address] [place] [id number] Mar, Type 2 diabetes mellitus without complications E11.9 ; Cerebral infarction due to unspecified occlusion or stenosis of unspecified cerebral artery I63.50 ; Aortic valve replaced Z95.2 and Parkinson disease G20 [facility] [address] [id number][place] [id number] Feb, [facility] [address] [id number][place] [address] Feb, [facility] [address] [id number], [place] [address] Feb, [facility] [address] [place] [id number] Jan, Cerebral infarction due to unspecified occlusion or stenosis of unspecified cerebral artery I63.50 ; Type 2 diabetes mellitus without complications E11.9 ; Aortic valve replaced Z95.2 and Gastroesophageal reflux disease, esophagitis presence not specified K21.9 [facility] [address] [facility] [id number], [place] [address] Jan, [facility] [address] [id number][place] [id number] December, [facility] [id number] [id number] Nov, [facility] [address] [place] [id number] Nov, Type 2 diabetes mellitus without complications E11.9 [facility] [address] [id number], [place] [address] Oct, [facility] [id number][place] [address] Oct, [facility] [id number] [id number] Oct, [facility] [id number] [id number] Oct, [facility] [address] [place] [id number] Oct, Aortic valve replaced Z95.2 ; Hemorrhagic cerebrovascular accident (CVA) I61.9 and Arthritis M19.90 [facility] [address] [facility] [id number], [place] [address] Sep, [facility] [address] [facility] [id number], [place] [address] Aug, [facility] [address] [facility] [id number], [place] [address] Aug, [facility] [address] [place] [id number] Aug, Cerebral infarction due to unspecified occlusion or stenosis of unspecified cerebral artery I63.50 and Aortic valve replaced Z95.2 [facility] [address] [id number][place] [id number] Aug, [facility] [address] [facility] [id number][place] [address] Jul, [facility] [address] [facility] [id number], [place] [address] Jul, [facility] [address] [facility] [id number], [place] [address] Jul, [facility] [address] [facility] [id number], [place] [address] Jul, [facility] [address] [place] [address] Jun, Cerebral infarction due to unspecified occlusion or stenosis of unspecified cerebral artery I63.50 [facility] [address] [place] [id number] Apr, Cerebral infarction due to unspecified occlusion or stenosis of unspecified cerebral artery I63.50 [facility] [address] [facility] [id number], [place] [address] Apr, Pain R52 [facility] [address] [facility] [id number], [place] [address] Apr, [facility] [address] [place] [id number] Apr, Hemorrhagic cerebrovascular accident (CVA) I61.9 [facility] [address] [id number], [place] [address] Apr, 2016 [facility] [address] [facility] [id number], [place] [address] Apr, [facility] [address] [facility] [id number], [place] [address] Mar, [facility] [address] [facility] [id number], [place] [address] Mar, [facility] [place] [address] [place], [place] [id number] Mar, Cerebral infarction due to unspecified occlusion or stenosis of unspecified cerebral artery I63.50 and Aortic valve replaced Z95.2 IMMUNIZATIONS No Known Immunizations SOCIAL HISTORY Never Assessed REASON FOR VISIT GERD, elevated BS and diarrhea PLAN OF CARE VITAL SIGNS MEDICATIONS Medication Instructions Dosage Frequency Start Date End Date Duration Status Protonix 40 MG Orally Once a day 1 tablet 24h Oct, 30 day(s) Active RESULTS No Results PROCEDURES No Known procedures INSTRUCTIONS MEDICATIONS ADMINISTERED No Known Medications MEDICAL (GENERAL) HISTORY Type Description Date Surgical History [facility] Surgical History Heart valve replacement ([facility]) Surgical History Bilateral total Knee replacement by Dr. Guido in [place]
--- OUTSIDE RECORDS SUMMARY | 2018-09-16 15:53 | XMS REPORT ---
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 Active 748710500 Problem Cerebral infarction due to unspecified occlusion or stenosis of unspecified cerebral artery I63.50 Active 462108448 Problem Type 2 diabetes mellitus without complications E11.9 Active 042478734 Problem Arthritis M19.90 Active 6382865 ALLERGIES Unknown Allergies SOCIAL HISTORY No smoking Hx information available PLAN OF CARE VITAL SIGNS MEDICATIONS Medication Instructions Dosage Frequency Start Date End Date Duration Status Nuedexta 20-10 MG Orally daily x7 days then BID 1 capsule Aug, 30 day(s) Active RESULTS No Results PROCEDURES No Known procedures IMMUNIZATIONS No Known Immunizations
--- OUTSIDE RECORDS SUMMARY | 2018-09-16 15:53 | XMS REPORT ---
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 Active 457255552147562 Problem Type 2 diabetes mellitus with hyperglycemia E11.65 Active 97624461 Problem Gastroesophageal reflux disease, esophagitis presence not specified K21.9 Active 618921051 Problem Type 2 diabetes mellitus without complications E11.9 Active 744762317 Problem USP 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 Active 863504697 Problem Parkinson disease G20 Active 42468252 ALLERGIES No Information ENCOUNTERS Encounter Location Date Diagnosis [facility] [address] [address] Feb, [facility] [address] [place] [id number] Feb, Cerebral infarction due to unspecified occlusion or stenosis of unspecified cerebral artery I63.50 ; Type 2 diabetes mellitus without complications E11.9 and 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 [facility] [address] [address] December, [facility] [id number] [place] [address] December, [facility] [id number] [place] [address] December, [facility] [address] [facility] [id number] [place] [address] December, Type 2 diabetes mellitus with hyperglycemia E11.65 and terminal gauger supervisor 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 [facility] [address] [facility] [id number] [place] [address] Oct, [facility] [address] [place] [id number] Oct, Cerebral infarction due to unspecified occlusion or stenosis of unspecified cerebral artery I63.50 ; Type 2 diabetes mellitus without complications E11.9 and Aortic valve replaced Z95.2 [facility] [address] [facility] [id number] [place] [address] Aug, [facility] [address] [place] [id number] Aug, Type 2 diabetes mellitus without complications E11.9 and Parkinson disease G20 [facility] [address] [place] [id number] May, Cerebral infarction due to unspecified occlusion or stenosis of unspecified cerebral artery I63.50 ; Aortic valve replaced Z95.2 ; Hemorrhagic cerebrovascular accident (CVA) I61.9 ; Arthritis M19.90 ; Type 2 diabetes mellitus without complications E11.9 ; Gastroesophageal reflux disease , esophagitis presence not specified K21.9 and Parkinson disease G20 [facility] [address] [id number] [place] [id number] Apr, [facility] [address] [id number] [place] [id number] Mar, [facility] [employer] [address] [place] [id number] Mar, Type 2 diabetes mellitus without complications E11.9 ; Cerebral infarction due to unspecified occlusion or stenosis of unspecified cerebral artery I63.50 ; Aortic valve replaced Z95.2 and Parkinson disease G20 [facility] [address] [id number] [place] [id number] Feb, [facility] [address] [id number] [place] [address] Feb, [facility] [address] [id number] [place] [address] Feb, [facility] [address] [place] [id number] Jan, Cerebral infarction due to unspecified occlusion or stenosis of unspecified cerebral artery I63.50 ; Type 2 diabetes mellitus without complications E11.9 ; Aortic valve replaced Z95.2 and Gastroesophageal reflux disease, esophagitis presence not specified K21.9 [facility] [address] [address] Jan, [facility] [id number] [place] [address] December, [facility] [id number] [place] [id number] Nov, [facility] [address] [place] [id number] Nov, Type 2 diabetes mellitus without complications E11.9 [facility] [address] [id number] [address] Oct, [facility] [id number] [place] [id number] Oct, [facility] [id number] [place] [id number] Oct, [facility] [id number] [place] [address] Oct, [facility] [address] [place] [id number] Oct, Aortic valve replaced Z95.2 ; Hemorrhagic cerebrovascular accident (CVA) I61.9 and Arthritis M19.90 [facility] [address] [id number] [address] Sep, [facility] [address] [id number] [address] Aug, [facility] [address] [id number] [address] Aug, [facility] [address] [place] [address] Aug, Cerebral infarction due to unspecified occlusion or stenosis of unspecified cerebral artery I63.50 and Aortic valve replaced Z95.2 [facility] [address] [id number] [place] [address] Aug, [facility] [address] [id number] [place] [address] Jul, [facility] [address] [id number] [place] [address] Jul, [facility] [address] [id number] [place] [address] Jul, [facility] [address] [facility] [id number] [place] [address]44[place] Jul, [facility] [address] [place] [address] Jun, Cerebral infarction due to unspecified occlusion or stenosis of unspecified cerebral artery I63.50 [facility] [address] [place] [id number] Apr, Cerebral infarction due to unspecified occlusion or stenosis of unspecified cerebral artery I63.50 [facility] [address] [id number] [place] [address] Apr, Pain R52 [facility] [address] [facility] [id number] [place] [address] Apr, [facility] [employer] [address] [place] [id number] Apr, Hemorrhagic cerebrovascular accident (CVA) I61.9 [facility] [address] [id number] [place] [address] Apr, [facility] [address] [facility] [id number] [place] [address] Apr, [facility] [address] [facility] [id number] [place] [address] Mar, [facility] [address] [facility] [id number] [place] [id number] Mar, [facility] [address] [place] [id number] Mar, Cerebral infarction due to unspecified occlusion or stenosis of unspecified cerebral artery I63.50 and Aortic valve replaced Z95.2 IMMUNIZATIONS No Known Immunizations SOCIAL HISTORY Never Assessed REASON FOR VISIT hyperglycemia PLAN OF CARE VITAL SIGNS MEDICATIONS Medication Instructions Dosage Frequency Start Date End Date Duration Status Dulaglutide 0.75 MG/0.5ML Subcutaneous once weekly as directed December, Active RESULTS No Results PROCEDURES No Known procedures INSTRUCTIONS MEDICATIONS ADMINISTERED No Known Medications MEDICAL (GENERAL) HISTORY Type Description Date Surgical History CABG (information obatianed from [facility] discharge ) Surgical History Heart valve replacement (Information obtained from [facility] discharge) Surgical History Bilateral total Knee replacement by Dr. Guido in [place]
--- OUTSIDE RECORDS SUMMARY | 2018-09-16 15:53 | XMS REPORT ---
Author Author VINCENT WHEAT [facility] Address [address] [place] [address] Care Team Providers Care Dragline Operator Name Role Phone VINCENT WHEAT Unavailable PROBLEMS Type Condition ICD9-CM Code AWL95-TG Code Onset Dates Condition Status SNOMED Code Problem Cerebral infarction due to unspecified occlusion or stenosis of unspecified cerebral artery I63.50 Active 976575650 Problem Aortic valve replaced Z95.2 Active 6103099579511 ALLERGIES Unknown Allergies SOCIAL HISTORY No smoking Hx information available PLAN OF CARE VITAL SIGNS MEDICATIONS Unknown Medications RESULTS No Results PROCEDURES No Known procedures IMMUNIZATIONS No Known Immunizations
--- OUTSIDE RECORDS SUMMARY | 2018-09-16 15:53 | XMS REPORT ---
Author Author VINCENT WHEAT [facility] Address [address] [place] [address] Care Team Providers Care Line Supervisor Name Role Phone VINCENT WHEAT Unavailable PROBLEMS Type Condition ICD9-CM Code OMZ10-VG Code Onset Dates Condition Status SNOMED Code Problem Aortic valve replaced Z95.2 Active 9276054237443 Problem Parkinson disease G20 Active 94739379 Problem Gastroesophageal reflux disease, esophagitis presence not specified K21.9 Active 836019143 Problem Hemorrhagic cerebrovascular accident (CVA) I61.9 Active 851131757 Problem Cerebral infarction due to unspecified occlusion or stenosis of unspecified cerebral artery I63.50 Active 355968229 Problem Type 2 diabetes mellitus without complications E11.9 Active 776980930 Problem Arthritis M19.90 Active 3088563 ALLERGIES Unknown Allergies SOCIAL HISTORY No smoking Hx information available PLAN OF CARE Activity Details Follow Up 2 Months Reason: VITAL SIGNS MEDICATIONS Unknown Medications RESULTS No Results PROCEDURES Procedure Date Ordered Related Diagnosis Body Site Stable Visit (10 minutes) Jun 18, 2016 IMMUNIZATIONS No Known Immunizations
--- OUTSIDE RECORDS SUMMARY | 2018-09-16 15:53 | XMS REPORT ---
Author Author EYAL SANCHEZ [facility] Address [address] [place] [address] Care Team Providers Care Book Retailer Name Role Phone EYAL SANCHEZ Unavailable PROBLEMS Type Condition ICD9-CM Code WLW73-MR Code Onset Dates Condition Status SNOMED Code Problem Aortic valve replaced Z95.2 Active 2134561200679 Problem Parkinson disease G20 Active 33419813 Problem Gastroesophageal reflux disease, esophagitis presence not specified K21.9 Active 098198702 Problem Hemorrhagic cerebrovascular accident (CVA) I61.9 Active 232903827 Problem Cerebral infarction due to unspecified occlusion or stenosis of unspecified cerebral artery I63.50 Active 756311011 Problem Type 2 diabetes mellitus without complications E11.9 Active 013061185 Problem Arthritis M19.90 Active 9036305 ALLERGIES Unknown Allergies SOCIAL HISTORY No smoking Hx information available PLAN OF CARE VITAL SIGNS MEDICATIONS Medication Instructions Dosage Frequency Start Date End Date Duration Status Nuedexta 20-10 MG Orally 2 times a day 1 capsule 12h 25 Aug, 2016 30 day(s) Active RESULTS No Results PROCEDURES No Known procedures IMMUNIZATIONS No Known Immunizations
--- OUTSIDE RECORDS SUMMARY | 2018-09-16 15:54 | XMS REPORT ---
Author Author VINCENT WHEAT Organization [facility] Address [address] [place] [address] Care Team Providers Care Gold Leaf Roller Name Role Phone VINCENT WHEAT Unavailable PROBLEMS Type Condition ICD9-CM Code XCE88-BK Code Onset Dates Condition Status SNOMED Code Problem Aortic valve replaced Z95.2 Active 4570164493430 Problem Parkinson disease G20 Active 93459367 Problem Gastroesophageal reflux disease, esophagitis presence not specified K21.9 Active 887999578 Problem Hemorrhagic cerebrovascular accident (CVA) I61.9 Active 669706592 Problem Cerebral infarction due to unspecified occlusion or stenosis of unspecified cerebral artery I63.50 Active 495675401 Problem Type 2 diabetes mellitus without complications E11.9 Active 656675029 Problem Arthritis M19.90 Active 5327961 ALLERGIES No Information SOCIAL HISTORY Never Assessed PLAN OF CARE VITAL SIGNS MEDICATIONS Medication Instructions Dosage Frequency Start Date End Date Duration Status Coumadin 4 MG Orally 5x weekly on Wed, Wednesday, wednesday and Wednesday. 1 tablet Jan, 30 day(s) Active Coumadin 2 MG Orally twice weekly on Wednesday and Wednesday 1 tablet Jan 30 day(s) Active RESULTS No Results PROCEDURES No Known procedures IMMUNIZATIONS No Known Immunizations MEDICAL (GENERAL) HISTORY Type Description Date Medical History Stroke Medical History Hypertension Medical History Hypercholesteremia Medical History Parkinson's Medical History BPH Medical History GERD Medical History CABG Medical History Heart VAlve replacement Surgical History CABG (information obatianed from [facility] discharge ) Surgical History Heart valve replacement (Information obtained from [facility] discharge) Surgical History Bilateral total Knee replacement by Dr. Guido in [place]
--- OUTSIDE RECORDS SUMMARY | 2018-09-16 15:54 | XMS REPORT ---
Author Author EYAL SANCHEZ Organization [facility] Address [address] [place] [address] Care Team Providers Care Forensic Economist Name Role Phone EYAL SANCHEZ Unavailable PROBLEMS Type Condition ICD9-CM Code CIG45-HV Code Onset Dates Condition Status SNOMED Code Problem Aortic valve replaced Z95.2 Active 8919387831086 Problem Parkinson disease G20 Active 42489207 Problem Gastroesophageal reflux disease, esophagitis presence not specified K21.9 Active 774506662 Problem Hemorrhagic cerebrovascular accident (CVA) I61.9 Active 767361692 Problem Cerebral infarction due to unspecified occlusion or stenosis of unspecified cerebral artery I63.50 Active 339123282 Problem Type 2 diabetes mellitus without complications E11.9 Active 959075945 Problem Arthritis M19.90 Active 2706928 ALLERGIES No Information ENCOUNTERS Encounter Location Date Diagnosis [facility] [address] [id number] [address] Oct, [facility] [address] [place] [id number] Oct, Cerebral infarction due to unspecified occlusion or stenosis of unspecified cerebral artery I63.50 ; Type 2 diabetes mellitus without complications E11.9 and Aortic valve replaced Z95.2 [facility] [id number] [place] [address] Aug, [facility] [address] [place] [id number] Aug, Type 2 diabetes mellitus without complications E11.9 and Parkinson disease G20 [facility] [address] [place] [id number] May, Cerebral infarction due to unspecified occlusion or stenosis of unspecified cerebral artery I63.50 ; Aortic valve replaced Z95.2 ; Hemorrhagic cerebrovascular accident (CVA) I61.9 ; Arthritis M19.90 ; Type 2 diabetes mellitus without complications E11.9 ; Gastroesophageal reflux disease , esophagitis presence not specified K21.9 and Parkinson disease G20 [facility] [address] [id number] [place] [id number] Apr, [facility] [address] [id number] [address] Mar, [facility] [address] [place] [id number] Mar, Type 2 diabetes mellitus without complications E11.9 ; Cerebral infarction due to unspecified occlusion or stenosis of unspecified cerebral artery I63.50 ; Aortic valve replaced Z95.2 and Parkinson disease G20 [facility] [place] [address] [id number] [id number] Feb, [facility] [place] [address] [id number][place] [id number] Feb, [facility] [place] [address] [id number][place] [id number] Feb, [facility] [address] [place] [id number] Jan, Cerebral infarction due to unspecified occlusion or stenosis of unspecified cerebral artery I63.50 ; Type 2 diabetes mellitus without complications E11.9 ; Aortic valve replaced Z95.2 and Gastroesophageal reflux disease, esophagitis presence not specified K21.9 [facility] [address] [facility] [id number], [place] [address] Jan, [facility] [place] [address] [id number] [id number] December, [facility] [address] [id number][place] [id number] Nov, [facility] [address] [place] [id number] Nov, Type 2 diabetes mellitus without complications E11.9 [facility] [address] [facility] [id number], [place] [address] Oct, [facility] [place] [address] [id number][place] [id number] Oct, [facility] [address] [id number] [id number] Oct, [facility] [address] [id number][place] [id number] Oct, [facility] [employer] [address] [place] [id number] Oct, Aortic valve replaced Z95.2 ; Hemorrhagic cerebrovascular accident (CVA) I61.9 and Arthritis M19.90 [facility] [address] [id number], [place] [address] Sep, [facility] [address] [facility] [id number], [place] [address] Aug, [facility] [address] [facility] [id number], [place] [address] Aug, [facility] [address] [place] [id number] Aug, Cerebral infarction due to unspecified occlusion or stenosis of unspecified cerebral artery I63.50 and Aortic valve replaced Z95.2 [facility] [address] [id number], [place] [id number] Aug, [facility] [address] [facility] [id number], [place] [address] Jul, [facility] [address] [facility] [id number], [place] [address] Jul, [facility] [address] [facility] [id number], [place] [address] Jul, [facility] [address] [facility] [id number], [place] [address] Jul, [facility] [address] [place] [id number] Jun, Cerebral infarction due to unspecified occlusion or stenosis of unspecified cerebral artery I63.50 [facility] [employer] [address] [place] [id number] Apr, Cerebral infarction due to unspecified occlusion or stenosis of unspecified cerebral artery I63.50 [facility] [address] [id number] [address] Apr, 2016 Pain R52 [facility] [address], [place] [address] Apr, [facility] [employer] [place] [facility] [address] [place] [id number] Apr, Hemorrhagic cerebrovascular accident (CVA) I61.9 [facility] [address], [place] [address] Apr, 2016 [address], [place] [address] Apr, [address] [address] Mar, [address] [address] Mar, [facility] [employer] [address] [facility] [place] [id number] Mar, Cerebral infarction due to unspecified occlusion or stenosis of unspecified cerebral artery I63.50 and Aortic valve replaced Z95.2 IMMUNIZATIONS No Known Immunizations SOCIAL HISTORY Never Assessed REASON FOR VISIT Change in coumad PLAN OF CARE VITAL SIGNS MEDICATIONS Medication Instructions Dosage Frequency Start Date End Date Duration Status Coumadin 4 MG Orally Once a day 1 tablet 24h Jan, Active RESULTS No Results PROCEDURES No Known procedures INSTRUCTIONS MEDICATIONS ADMINISTERED No Known Medications MEDICAL (GENERAL) HISTORY Type Description Date Surgical History CABG (information obatianed from [facility] discharge ) Surgical History Heart valve replacement (Information obtained from [facility] discharge) Surgical History Bilateral total Knee replacement by Dr. Guido in [place]
--- OUTSIDE RECORDS SUMMARY | 2018-09-16 15:54 | XMS REPORT ---
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
--- OUTSIDE RECORDS SUMMARY | 2018-09-16 15:54 | XMS REPORT ---
Author Author EYAL SANCHEZ [facility] Address [address] [place] [address] Care Team Providers Care Facilities Flight Check Pilot Name Role Phone EYAL SANCHEZ Unavailable PROBLEMS Type Condition ICD9-CM Code SGL57-EC Code Onset Dates Condition Status SNOMED Code Problem Cerebral infarction due to unspecified occlusion or stenosis of unspecified cerebral artery I63.50 Active 642961017 Problem Hemorrhagic cerebrovascular accident (CVA) I61.9 Active 773457563 Problem Aortic valve replaced Z95.2 Active 8273711666086 Problem Type 2 diabetes mellitus with hyperglycemia E11.65 Active 70879716 Problem penitentiary 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 Active 670517264 Problem Type 2 diabetes mellitus without complications E11.9 Active 054981706 Problem Arthritis M19.90 Active 3161375 Problem Parkinson disease G20 Active 96672567 Problem Gastroesophageal reflux disease, esophagitis presence not specified K21.9 Active 987945106 ALLERGIES No Information ENCOUNTERS Encounter Location Date Diagnosis [id number] [place] [address] December, [facility] [place] [id number] [place] [address] December, [facility] [place] [id number] [place] [address] December, [facility] [place] [id number] [place] [address] December, Type 2 diabetes mellitus with hyperglycemia E11.65 and penitentiary 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 [id number] [place] [address] Oct, [facility] [address] [place] [id number] Oct, Cerebral infarction due to unspecified occlusion or stenosis of unspecified cerebral artery I63.50 ; Type 2 diabetes mellitus without complications E11.9 and Aortic valve replaced Z95.2 [facility] [place] [address] [facility] [id number] [place] [address] Aug, [facility] [employer] [facility] [employer] [address] [place] [id number] Aug, Type 2 diabetes mellitus without complications E11.9 and Parkinson disease G20 [facility] [address] [place] [id number] May, Cerebral infarction due to unspecified occlusion or stenosis of unspecified cerebral artery I63.50 ; Aortic valve replaced Z95.2 ; Hemorrhagic cerebrovascular accident (CVA) I61.9 ; Arthritis M19.90 ; Type 2 diabetes mellitus without complications E11.9 ; Gastroesophageal reflux disease , esophagitis presence not specified K21.9 and Parkinson disease G20 [address] [id number] [place] [id number] Apr, [facility] [address] [id number] [id number] Mar, [facility] [employer] [facility] [address] [place] [id number] Mar, Type 2 diabetes mellitus without complications E11.9 ; Cerebral infarction due to unspecified occlusion or stenosis of unspecified cerebral artery I63.50 ; Aortic valve replaced Z95.2 and Parkinson disease G20 [facility] [address] [id number] [place] [id number] Feb, [facility] [address] [id number][place] [id number] Feb, [facility] [address] [id number][place] [address] Feb, [facility] [address] [place] [id number] Jan, Cerebral infarction due to unspecified occlusion or stenosis of unspecified cerebral artery I63.50 ; Type 2 diabetes mellitus without complications E11.9 ; Aortic valve replaced Z95.2 and Gastroesophageal reflux disease, esophagitis presence not specified K21.9 [facility] [place] [address] [facility] [id number], [place] [address] Jan, [facility] [address] [id number][place] [id number] December, [facility] [id number], [place] [id number] Nov, Via [employer] [address] [place] [id number] Nov, Type 2 diabetes mellitus without complications E11.9 [facility] [place] [address] [facility] [id number], [place] [address] Oct, [facility] [id number], [place] [id number] Oct, [facility] [id number], [place] [id number] Oct, [facility] [address] [id number] [id number] Oct, [facility] [address] [place] [id number] Oct, Aortic valve replaced Z95.2 ; Hemorrhagic cerebrovascular accident (CVA) I61.9 and Arthritis M19.90 [facility] [place] [address] [facility] [id number], [place] [address] Sep, [facility] [place] [address] [id number], [place] [address] Aug, [facility] [place] [address] [facility] [id number], [place] [address] Aug, [facility] [address] [place] [id number] Aug, Cerebral infarction due to unspecified occlusion or stenosis of unspecified cerebral artery I63.50 and Aortic valve replaced Z95.2 [facility] [id number], [place] [id number] Aug, [facility] [place] [address] [id number] [address] Jul, [facility] [place] [address] [facility] [id number], [place] [address] Jul, [facility] [place] [address] [facility] [id number], [place] [address] Jul, [facility] [place] [address] [facility] [id number], [place] [address] Jul, [facility] [address] [place] [id number] Jun, Cerebral infarction due to unspecified occlusion or stenosis of unspecified cerebral artery I63.50 [facility] [address] [place] [id number] Apr, Cerebral infarction due to unspecified occlusion or stenosis of unspecified cerebral artery I63.50 [facility] [place] [address] [facility] [id number], [place] [address] Apr, Pain R52 [facility] [place] [address]00565100[place], [place] [address] Apr, [facility] [address] [place] [id number] Apr, Hemorrhagic cerebrovascular accident (CVA) I61.9 [facility] [place] [address] [facility] [id number], [place] [address] Apr, [facility] [place] [address] [facility] [id number], [place] [address] Apr, [facility] [place] [address] [facility] [id number], [place] [address] Mar, [facility] [place] [address] [facility] [id number], [place] [address] Mar, [facility] [address] [place] [id number] Mar, Cerebral infarction due to unspecified occlusion or stenosis of unspecified cerebral artery I63.50 and Aortic valve replaced Z95.2 IMMUNIZATIONS No Known Immunizations SOCIAL HISTORY Never Assessed REASON FOR VISIT decrease Lexapro PLAN OF CARE VITAL SIGNS MEDICATIONS Medication Instructions Dosage Frequency Start Date End Date Duration Status Lexapro 20 MG Orally Once a day 0.5 tablet 24h Active RESULTS No Results PROCEDURES No Known procedures INSTRUCTIONS MEDICATIONS ADMINISTERED No Known Medications MEDICAL (GENERAL) HISTORY Type Description Date Surgical History CABG (information obatianed from [facility] discharge ) Surgical History Heart valve replacement (Information obtained from [facility] discharge) Surgical History Bilateral total Knee replacement by Dr. Guido in [place]
--- OUTSIDE RECORDS SUMMARY | 2018-09-16 15:54 | XMS REPORT ---
Author Author VINCENT WHEAT [facility] [employer] Address Unknown Phone Unavailable Care Team Providers Care Director Translational Name Role Phone VINCENT WHEAT CP Unavailable Allergies No Known Allergies Problems Problem Type Condition Code Onset Dates Condition Status Problem Cerebral infarction due to unspecified occlusion or stenosis of unspecified cerebral artery I63.50 Active Problem Aortic valve replaced Z95.2 Active Problem Hemorrhagic cerebrovascular accident (CVA) I61.9 Active Assessment Hemorrhagic cerebrovascular accident (CVA) I61.9 Active Medications No Known Medications Procedures Procedure Coding System Code Date Office Visit, Est Pt., Level 1 CPT-4 98331 Apr 23, 2016 Results No Known Results Summary Purpose eClinicalWorks Submission
--- OUTSIDE RECORDS SUMMARY | 2018-09-16 15:54 | XMS REPORT ---
Author Author VINCENT WHEAT [facility] Address [address] [place] [address] Care Team Providers Care Nut Former Name Role Phone VINCENT WHEAT Unavailable PROBLEMS Type Condition ICD9-CM Code YMP04-HB Code Onset Dates Condition Status SNOMED Code Problem Pain R52 Active 78607385 Problem Hemorrhagic cerebrovascular accident (CVA) I61.9 Active 812019158 Assessment Pain R52 Apr, Active 18006627 Problem Cerebral infarction due to unspecified occlusion or stenosis of unspecified cerebral artery I63.50 Active 346110967 Problem Aortic valve replaced Z95.2 Active 5543014812076 ALLERGIES Unknown Allergies SOCIAL HISTORY No smoking Hx information available PLAN OF CARE VITAL SIGNS MEDICATIONS Medication Instructions Dosage Frequency Start Date End Date Duration Status Tramadol HCl 50 mg Orally every 6 hrs (PT IN [facility]) 1 tablet as needed Apr, May, 30 days Active RESULTS No Results PROCEDURES No Known procedures IMMUNIZATIONS No Known Immunizations
--- OUTSIDE RECORDS SUMMARY | 2018-09-16 15:54 | XMS REPORT ---
Author Author VINCENT WHEAT [facility] [employer] Address Unknown Phone Unavailable Care Team Providers Care Microsoft Bi Architect Name Role Phone VINCENT WHEAT CP Unavailable Allergies No Known Allergies Problems Problem Type Condition Code Onset Dates Condition Status Problem Hemorrhagic cerebrovascular accident (CVA) I61.9 Active Problem Cerebral infarction due to unspecified occlusion or stenosis of unspecified cerebral artery I63.50 Active Problem Pain R52 Active Problem Aortic valve replaced Z95.2 Active Assessment Cerebral infarction due to unspecified occlusion or stenosis of unspecified cerebral artery I63.50 Active Medications No Known Medications Procedures Procedure Coding System Code Date Stable Visit (10 minutes) CPT-4 24231 May 07, 2016 Results No Known Results Summary Purpose eClinicalWorks Submission
--- OUTSIDE RECORDS SUMMARY | 2018-09-16 15:54 | XMS REPORT ---
Author Author VINCENT WHEAT [facility] Address [address] [place] [address] Care Team Providers Care President Mortgage Company Name Role Phone VINCENT WHEAT Unavailable PROBLEMS Type Condition ICD9-CM Code DXA49-MO Code Onset Dates Condition Status SNOMED Code Problem Pain R52 Active 50082724 Problem Hemorrhagic cerebrovascular accident (CVA) I61.9 Active 266622609 Problem Cerebral infarction due to unspecified occlusion or stenosis of unspecified cerebral artery I63.50 Active 674413649 Problem Aortic valve replaced Z95.2 Active 5533275762799 ALLERGIES Unknown Allergies SOCIAL HISTORY No smoking Hx information available PLAN OF CARE VITAL SIGNS MEDICATIONS Medication Instructions Dosage Frequency Start Date End Date Duration Status Tamsulosin HCl 0.4 MG Orally Once a day 1 capsule 24h Jul,Aug 30 day(s) Active RESULTS No Results PROCEDURES No Known procedures IMMUNIZATIONS No Known Immunizations
--- OUTSIDE RECORDS SUMMARY | 2018-09-16 15:54 | XMS REPORT ---
Author Author PJ BRENNAN Organization [facility] Address [address] [place] [address] Care Team Providers Care Supervisor Pyrotechnic Loading Name Role Phone PJ BRENNAN Unavailable PROBLEMS Type Condition ICD9-CM Code [id number] Code Onset Dates Condition Status SNOMED Code Problem Aortic valve replaced Z95.2 Active 3309025625328 Problem Parkinson disease G20 Active 24753114 Problem Gastroesophageal reflux disease, esophagitis presence not specified K21.9 Active 186068705 Problem Hemorrhagic cerebrovascular accident (CVA) I61.9 Active 141968570 Problem Cerebral infarction due to unspecified occlusion or stenosis of unspecified cerebral artery I63.50 Active 595211888 Problem Type 2 diabetes mellitus without complications E11.9 Active 052548559 Problem Arthritis M19.90 Active 3619490 ALLERGIES No Information ENCOUNTERS Encounter Location Date Diagnosis [facility] [address] [id number] [address] Oct, Via [employer] [address] [place] [id number] Oct, Cerebral infarction due to unspecified occlusion or stenosis of unspecified cerebral artery I63.50 ; Type 2 diabetes mellitus without complications E11.9 and Aortic valve replaced Z95.2 [facility] [id number] [place] [address] Aug, Via [employer] [address] [place] [id number] Aug, Type 2 diabetes mellitus without complications E11.9 and Parkinson disease G20 Via [employer] [address] [place] [id number] May, Cerebral infarction due to unspecified occlusion or stenosis of unspecified cerebral artery I63.50 ; Aortic valve replaced Z95.2 ; Hemorrhagic cerebrovascular accident (CVA) I61.9 ; Arthritis M19.90 ; Type 2 diabetes mellitus without complications E11.9 ; Gastroesophageal reflux disease , esophagitis presence not specified K21.9 and Parkinson disease G20 [facility] [address] [id number] [id number] Apr, [facility] [address] [id number] [id number] Mar, [facility] [employer] [address] [place] [id number] Mar, Type 2 diabetes mellitus without complications E11.9 ; Cerebral infarction due to unspecified occlusion or stenosis of unspecified cerebral artery I63.50 ; Aortic valve replaced Z95.2 and Parkinson disease G20 [facility] [address] [id number] [id number] Feb, [facility] [address] [id number] [id number] Feb, [facility] [address] [id number] [id number] Feb, Via [employer] [address] [place] [id number] Jan, Cerebral infarction due to unspecified occlusion or stenosis of unspecified cerebral artery I63.50 ; Type 2 diabetes mellitus without complications E11.9 ; Aortic valve replaced Z95.2 and Gastroesophageal reflux disease, esophagitis presence not specified K21.9 [facility] [address] [facility] [id number], [place] [address] Jan, [facility] [address] [id number][place] [id number] December, [facility] [address] [id number][place] [id number] Nov, [facility] [employer] [employer] [address] [place] [id number] Nov, Type 2 diabetes mellitus without complications E11.9 [facility] [address] [facility] [id number], [place] [address] Oct, [facility] [address] [id number][place] [id number] Oct, [facility] [place] [address] [id number][place] [id number] Oct, [facility] [place] [address] [id number][place] [id number] Oct, [facility] [employer] [address] [place] [id number] Oct, Aortic valve replaced Z95.2 ; Hemorrhagic cerebrovascular accident (CVA) I61.[address] [facility] [address] [id number], [place] [address] Sep, [facility] [address] [id number], [place] [address] Aug, [facility] [address] [facility] [id number], [place] [address] Aug, Via [employer] [employer] [address] [place] [id number] Aug, Cerebral infarction due to unspecified occlusion or stenosis of unspecified cerebral artery I63.50 and Aortic valve replaced Z95.2 [facility] [address] [id number], [place] [id number] Aug, [facility] [address] [facility] [id number], [place] [address] Jul, [facility] [address] [facility] [id number] [address] Jul, [facility] [address] [facility] [id number] [address] Jul, [facility] [address] [facility] [id number][place] [address] Jul, Via [employer] [address] [place] [id number] Jun, Cerebral infarction due to unspecified occlusion or stenosis of unspecified cerebral artery I63.50 [facility] [employer] [employer] [address] [place] [id number] Apr, Cerebral infarction due to unspecified occlusion or stenosis of unspecified cerebral artery I63.50 [facility] [address] [id number], [place] [address] 27 Apr, [address] [facility] [address]65[address], [place] [address] Apr, Via [facility] [employer] [address] [place] [id number] Apr, Hemorrhagic cerebrovascular accident (CVA) I61.9 [facility] [address]65[address], [place] [address] Apr, [facility] [address] [address] Apr, [facility] [address]65[address] [address] Mar, [facility] [address], [place] [address] Mar, Via [employer] [address] [place] [id number] Mar, Cerebral infarction due to unspecified occlusion [...] total Knee replacement by Dr. Guido in [place]
--- OUTSIDE RECORDS SUMMARY | 2018-09-16 15:54 | XMS REPORT ---
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 Name Role Phone VINCENT WHEAT Unavailable PROBLEMS Type Condition ICD9-CM Code UOU29-JE Code Onset Dates Condition Status SNOMED Code Problem Aortic valve replaced Z95.2 Active 0634518384491 Problem Parkinson disease G20 Active 62814834 Problem Gastroesophageal reflux disease, esophagitis presence not specified K21.9 Active 416296245 Problem Hemorrhagic cerebrovascular accident (CVA) I61.9 Active 029393487 Problem Cerebral infarction due to unspecified occlusion or stenosis of unspecified cerebral artery I63.50 Active 628342631 Problem Type 2 diabetes mellitus without complications E11.9 Active 672380399 Problem Arthritis M19.90 Active 3816888 ALLERGIES No Information SOCIAL HISTORY Never Assessed PLAN OF CARE VITAL SIGNS MEDICATIONS Medication Instructions Dosage Frequency Start Date End Date Duration Status Bactrim DS 800-160 MG Orally Twice a day 1 tablet 12h 14 Sep, 2016 05 days Active RESULTS No Results PROCEDURES No [...] total Knee replacement by Dr. Guido in [place]
--- OUTSIDE RECORDS SUMMARY | 2018-09-16 15:57 | XMS REPORT | Continuity of Care Document ---
Author Author [facility] Organization [facility] Address Unknown Phone Unavailable Allergies Active Description Code Type Severity Reaction Onset Reported/Identified Relationship to Patient Clinical Status Yes NKANo Known Allergies NKA Miscellaneous Allergy Unknown N/A 12/29/2005 Yes Iodinated Contrast Media - IV Dye [id number] Drug Allergy Unknown N/A 02/06 Yes Iodinated Contrast Media - Oral and [id number] Drug Allergy Unknown N/A 08/2015 Yes Iodinated Contrast- Oral and IV Dye [id number] Drug Allergy Unknown N/A 08/2015 Medications There is no data. Problems Date Dx Coded Attending Type Code Diagnosis Diagnosed By 02/12/2016 ANTHONY BOWLING MD Ot F02.80 DEMENTIA IN OTH DISEASES CLASSD ELSWHR W 02/12/2016 ANTHONY BOWLING MD Ot F17.210 NICOTINE DEPENDENCE, CIGARETTES, UNCOMPL 02/12/2016 ANTHONY BOWLING MD Ot G31.83 DEMENTIA WITH LEWY BODIES 02/12/2016 ANTHONY BOWLING MD Ot I10 ESSENTIAL (PRIMARY) HYPERTENSION 02/12/2016 ANTHONY BOWLING MD Ot K21.9 GASTRO-ESOPHAGEAL REFLUX DISEASE WITHOUT 02/12/2016 ANTHONY BOWLING MD Ot M54.2 CERVICALGIA 02/12/2016 ANTHONY BOWLING MD Ot N40.0 ENLARGED PROSTATE WITHOUT LOWER URINARY 02/12/2016 ANHTONY BOWLING MD Ot R41.0 DISORIENTATION, UNSPECIFIED 02/12/2016 ANTHONY BOWLING MD Ot R51 HEADACHE 02/12/2016 ANTHONY BOWLING MD Ot R53.1 WEAKNESS 02/12/2016 ANTHONY BOWLING MD Ot T42.75XA ADVERSE EFFECT OF UNSP ANTIEPLPTC AND SE 02/12/2016 ANTHONY BOWLING MD Ot Z86.73 PRSNL HX OF TIA (TIA), AND CEREB INFRC W 02/12/2016 ANTHONY BOWLING MD Ot Z95.1 PRESENCE OF AORTOCORONARY BYPASS GRAFT 02/12/2016 ANTHONY BOWLING MD Ot Z95.2 PRESENCE OF PROSTHETIC HEART VALVE 02/12/2016 ANTHONY BOWLING MD Ot F02.80 DEMENTIA IN OTH DISEASES CLASSD ELSWHR W 02/12/2016 ANTHONY BOWLING MD Ot F17.210 NICOTINE DEPENDENCE, CIGARETTES, UNCOMPL 02/12/2016 ANTHONY BOWLING MD Ot G31.83 DEMENTIA WITH LEWY BODIES 02/12/2016 ANTHONY BOWLING MD Ot I10 ESSENTIAL (PRIMARY) HYPERTENSION 02/12/2016 ANTHONY BOWLING MD Ot K21.9 GASTRO-ESOPHAGEAL REFLUX DISEASE WITHOUT 02/12/2016 ANTHONY BOWLING MD Ot M54.2 CERVICALGIA 02/12/2016 ANTHONY BOWLING MD Ot N40.0 ENLARGED PROSTATE WITHOUT LOWER URINARY 02/12/2016 ANTHONY BOWLING MD Ot R41.0 DISORIENTATION, UNSPECIFIED 02/12/2016 ANTHONY BOWLING MD Ot R51 HEADACHE 02/12/2016 ANTHONY BOWLING MD Ot R53.1 WEAKNESS 02/12/2016 ANTHONY BOWLING MD Ot T42.75XA ADVERSE EFFECT OF UNSP ANTIEPLPTC AND SE 02/12/2016 ANTHONY BOWLING MD Ot Z86.73 PRSNL HX OF TIA (TIA), AND CEREB INFRC W 02/12/2016 ANTHONY BOWLING MD Ot Z95.1 PRESENCE OF AORTOCORONARY BYPASS GRAFT 02/12/2016 ANTHONY BOWLING MD Ot Z95.2 PRESENCE OF PROSTHETIC HEART VALVE 02/16/2016 JOSE ALEJANDRO TORRES MD Ot F02.80 DEMENTIA IN OTH DISEASES CLASSD ELSWHR W 02/16/2016 JOSE ALEJANDRO TORRES MD Ot F17.210 NICOTINE DEPENDENCE, CIGARETTES, UNCOMPL 02/16/2016 JOSE ALEJANDRO TORRES MD Ot G31.83 DEMENTIA WITH LEWY BODIES 02/16/2016 JOSE ALEJANDRO TORRES MD Ot I10 ESSENTIAL (PRIMARY) HYPERTENSION 02/16/2016 JOSE ALEJANDRO TORRES MD Ot I69.398 OTHER SEQUELAE OF CEREBRAL INFARCTION 02/16/2016 TORRES MD, JOSE ALEJANDRO E Ot K21.9 GASTRO-ESOPHAGEAL REFLUX DISEASE WITHOUT 02/16/2016 JOSE ALEJANDRO TORRES MD E Ot M54.2 CERVICALGIA 02/16/2016 JOSE ALEJANDRO TORRES MD E Ot N40.0 ENLARGED PROSTATE WITHOUT LOWER URINARY 02/16/2016 JOSE ALEJANDRO TORRES MD E Ot R26.81 UNSTEADINESS ON FEET 02/16/2016 JOSE ALEJANDRO TORRES MD Ot R41.0 DISORIENTATION, UNSPECIFIED 02/16/2016 JOSE ALEJANDRO TORRES MD E Ot R53.1 WEAKNESS 02/16/2016 JOSE ALEJANDRO TORRES MD E Ot T42.75XD ADVERSE EFFECT OF UNSP ANTIEPLPTC AND SE 02/16/2016 JOSE ALEJANDRO TORRES MD Ot Z95.1 PRESENCE OF AORTOCORONARY BYPASS GRAFT 02/16/2016 JOSE ALEJANDRO TORRES MD Ot Z95.2 PRESENCE OF PROSTHETIC HEART VALVE 02/17/2016 JOSE ALEJANDRO TORRES MD E Ot F02.80 DEMENTIA IN OTH DISEASES CLASSD ELSWHR W 02/17/2016 JOSE ALEJANDRO TORRES MD E Ot F17.210 NICOTINE DEPENDENCE, CIGARETTES, UNCOMPL 02/17/2016 JOSE ALEJANDRO TORRES MD E Ot G31.83 DEMENTIA WITH LEWY BODIES 02/17/2016 JOSE ALEJANDRO TORRES MD E Ot I10 ESSENTIAL (PRIMARY) HYPERTENSION 02/17/2016 JOSE ALEJANDRO TORRES MD E Ot I69.398 OTHER SEQUELAE OF CEREBRAL INFARCTION 02/17/2016 JOSE ALEJANDRO TORRES MD E Ot K21.9 GASTRO-ESOPHAGEAL REFLUX DISEASE WITHOUT 02/17/2016 JOSE ALEJANDRO TORRES MD E Ot M54.2 CERVICALGIA 02/17/2016 JOSE ALEJANDRO TORRES MD E Ot N40.0 ENLARGED PROSTATE WITHOUT LOWER URINARY 02/17/2016 JOSE ALEJANDRO TORRES MD E Ot R26.81 UNSTEADINESS ON FEET 02/17/2016 JOSE ALEJANDRO TORRES MD Ot R41.0 DISORIENTATION, UNSPECIFIED 02/17/2016 JOSE ALEJANDRO TORRES MD Ot R53.1 WEAKNESS 02/17/2016 JOSE ALEJANDRO TORRES MD E Ot T42.75XD ADVERSE EFFECT OF UNSP ANTIEPLPTC AND SE 02/17/2016 JOSE ALEJANDRO TORRES MD Ot Z95.1 PRESENCE OF AORTOCORONARY BYPASS GRAFT 02/17/2016 JOSE ALEJANDRO TORRES MD Ot Z95.2 PRESENCE OF PROSTHETIC HEART VALVE 02/17/2016 TORRES MD, JOSE ALEJANDRO E Ot F02.80 DEMENTIA IN OTH DISEASES CLASSD ELSWHR W 02/17/2016 JOSE ALEJANDRO TORRES MD E Ot F17.210 NICOTINE DEPENDENCE, CIGARETTES, UNCOMPL 02/17/2016 JOSE ALEJANDRO TORRES MD E Ot G31.83 DEMENTIA WITH LEWY BODIES 02/17/2016 JOSE ALEJANDRO TORRES MD E Ot I10 ESSENTIAL (PRIMARY) HYPERTENSION 02/17/2016 JOSE ALEJANDRO TORRES MD E Ot I69.398 OTHER SEQUELAE OF CEREBRAL INFARCTION 02/17/2016 JOSE ALEJANDRO TORRES MD E Ot K21.9 GASTRO-ESOPHAGEAL REFLUX DISEASE WITHOUT 02/17/2016 JOSE ALEJANDRO TORRES MD E Ot M54.2 CERVICALGIA 02/17/2016 JOSE ALEJANDRO TORRES MD E Ot N40.0 ENLARGED PROSTATE WITHOUT LOWER URINARY 02/17/2016 JOSE ALEJANDRO TORRES MD E Ot R26.81 UNSTEADINESS ON FEET 02/17/2016 JOSE ALEJANDRO TORRES MD E Ot R41.0 DISORIENTATION, UNSPECIFIED 02/17/2016 JOSE ALEJANDRO TORRES MD E Ot R53.1 WEAKNESS 02/17/2016 JOSE ALEJANDRO TORRES MD E Ot T42.75XD ADVERSE EFFECT OF UNSP ANTIEPLPTC AND SE 02/17/2016 JOSE ALEJANDRO TORRES MD E Ot Z95.1 PRESENCE OF AORTOCORONARY BYPASS GRAFT 02/17/2016 JOSE ALEJANDRO TORRES MD E Ot Z95.2 PRESENCE OF PROSTHETIC HEART VALVE 02/18/2016 JOSE ALEJANDRO TORRES MD E Ot F02.80 DEMENTIA IN OTH DISEASES CLASSD ELSWHR W 02/18/2016 JOSE ALEJANDRO TORRES MD E Ot F17.210 NICOTINE DEPENDENCE, CIGARETTES, UNCOMPL 02/18/2016 JOSE ALEJANDRO TORRES MD E Ot G31.83 DEMENTIA WITH LEWY BODIES 02/18/2016 JOSE ALEJANDRO TORRES MD E Ot I10 ESSENTIAL (PRIMARY) HYPERTENSION 02/18/2016 JOSE ALEJANDRO TORRES MD E Ot I69.398 OTHER SEQUELAE OF CEREBRAL INFARCTION 02/18/2016 JOSE ALEJANDRO TORRES MD E Ot K21.9 GASTRO-ESOPHAGEAL REFLUX DISEASE WITHOUT 02/18/2016 TUCKER TORRES MDIC E Ot M54.2 CERVICALGIA 02/18/2016 JOSE ALEJANDRO TORRES MD E Ot N40.0 ENLARGED PROSTATE WITHOUT LOWER URINARY 02/18/2016 JOSE ALEJANDRO TORRES MD E Ot R26.81 UNSTEADINESS ON FEET 02/18/2016 JOSE ALEJANDRO TORRES MD E Ot R41.0 DISORIENTATION, UNSPECIFIED 02/18/2016 TUCKER TORRES MDIC E Ot R53.1 WEAKNESS 02/18/2016 JOSE ALEJANDRO TORRES MD E Ot T42.75XD ADVERSE EFFECT OF UNSP ANTIEPLPTC AND SE 02/18/2016 JOSE ALEJANDRO TORRES MD E Ot Z95.1 PRESENCE OF AORTOCORONARY BYPASS GRAFT 02/18/2016 JOSE ALEJANDRO TORRES MD E Ot Z95.2 PRESENCE OF PROSTHETIC HEART VALVE 02/18/2016 JOSE ALEJANDRO TORRES MD E Ot F02.80 DEMENTIA IN OTH DISEASES CLASSD ELSWHR W 02/18/2016 JOSE ALEJANDRO TORRES MD E Ot F17.210 NICOTINE DEPENDENCE, CIGARETTES, UNCOMPL 02/18/2016 JOSE ALEJANDRO TORRES MD E Ot G31.83 DEMENTIA WITH LEWY BODIES 02/18/2016 JOSE ALEJANDRO TORRES MD E Ot I10 ESSENTIAL (PRIMARY) HYPERTENSION 02/18/2016 JOSE ALEJANDRO TORRES MD E Ot I69.398 OTHER SEQUELAE OF CEREBRAL INFARCTION 02/18/2016 JOSE ALEJANDRO TORRES MD E Ot K21.9 GASTRO-ESOPHAGEAL REFLUX DISEASE WITHOUT 02/18/2016 TUCKER TORRES MDIC E Ot M54.2 CERVICALGIA 02/18/2016 JOSE ALEJANDRO TORRES MD E Ot N40.0 ENLARGED PROSTATE WITHOUT LOWER URINARY 02/18/2016 TUCKER TORRES MDIC E Ot R26.81 UNSTEADINESS ON FEET 02/18/2016 TUCKER TORRES MDIC E Ot R41.0 DISORIENTATION, UNSPECIFIED 02/18/2016 JOSE ALEJANDRO TORRES MD E Ot R53.1 WEAKNESS 02/18/2016 JOSE ALEJANDRO TORRES MD E Ot T42.75XD ADVERSE EFFECT OF UNSP ANTIEPLPTC AND SE 02/18/2016 JOSE ALEJANDRO TORRES MD E Ot Z95.1 PRESENCE OF AORTOCORONARY BYPASS GRAFT 02/18/2016 JOSE ALEJANDRO TORRES MD E Ot Z95.2 PRESENCE OF PROSTHETIC HEART VALVE 02/18/2016 JOSE ALEJANDRO TORRES MD E Ot F02.80 DEMENTIA IN OTH DISEASES CLASSD ELSWHR W 02/18/2016 JOSE ALEJANDRO TORRES MD E Ot F17.210 NICOTINE DEPENDENCE, CIGARETTES, UNCOMPL 02/18/2016 JOSE ALEJANDRO TORRES MD E Ot G31.83 DEMENTIA WITH LEWY BODIES 02/18/2016 TUCKER TORRES MDIC E Ot I10 ESSENTIAL (PRIMARY) HYPERTENSION 02/18/2016 TUCKER TORRES MDIC E Ot I69.398 OTHER SEQUELAE OF CEREBRAL INFARCTION 02/18/2016 JOSE ALEJANDRO TORRES MD E Ot K21.9 GASTRO-ESOPHAGEAL REFLUX DISEASE WITHOUT 02/18/2016 JOSE ALEJANDRO TORRES MD E Ot M54.2 CERVICALGIA 02/18/2016 JOSE ALEJANDRO TORRES MD E Ot N40.0 ENLARGED PROSTATE WITHOUT LOWER URINARY 02/18/2016 JOSE ALEJANDRO TORRES MD E Ot R26.81 UNSTEADINESS ON FEET 02/18/2016 JOSE ALEJANDRO TORRES MD E Ot R41.0 DISORIENTATION, UNSPECIFIED 02/18/2016 JOSE ALEJANDRO TORRES MD E Ot R53.1 WEAKNESS 02/18/2016 JOSE ALEJANDRO TORRES MD E Ot T42.75XD ADVERSE EFFECT OF UNSP ANTIEPLPTC AND SE 02/18/2016 JOSE ALEJANDRO TORRES MD E Ot Z95.1 PRESENCE OF AORTOCORONARY BYPASS GRAFT 02/18/2016 JOSE ALEJANDRO TORRES MD E Ot Z95.2 PRESENCE OF PROSTHETIC HEART VALVE 02/27/2016 JOSE ALEJANDRO TORRES MD E Ot F02.80 DEMENTIA IN OTH DISEASES CLASSD ELSWHR W 02/27/2016 JOSE ALEJANDRO TORRES MD E Ot F17.210 NICOTINE DEPENDENCE, CIGARETTES, UNCOMPL 02/27/2016 JOSE ALEJANDRO TORRES MD E Ot G31.83 DEMENTIA WITH LEWY BODIES 02/27/2016 JOSE ALEJANDRO TORRES MD E Ot I10 ESSENTIAL (PRIMARY) HYPERTENSION 02/27/2016 MELISSA RODRIGUEZ JOSE ALEJANDRO E Ot I69.398 OTHER SEQUELAE OF CEREBRAL INFARCTION 02/27/2016 JOSE ALEJANDRO TORRES MD E Ot K21.9 GASTRO-ESOPHAGEAL REFLUX DISEASE WITHOUT 02/27/2016 JOSE ALEJANDRO TORRES MD E Ot M54.2 CERVICALGIA 02/27/2016 TUCKER TORRES MDIC E Ot N40.0 ENLARGED PROSTATE WITHOUT LOWER URINARY 02/27/2016 JOSE ALEJANDRO TORRES MD E Ot R26.81 UNSTEADINESS ON FEET 02/27/2016 JOSE ALEJANDRO TORRES MD E Ot R41.0 DISORIENTATION, UNSPECIFIED 02/27/2016 TUCKER TORRES MDIC E Ot R53.1 WEAKNESS 02/27/2016 JOSE ALEJANDRO TORRES MD E Ot T42.75XD ADVERSE EFFECT OF UNSP ANTIEPLPTC AND SE 02/27/2016 JOSE ALEJANDRO TORRES MD E Ot Z95.1 PRESENCE OF AORTOCORONARY BYPASS GRAFT 02/27/2016 JOSE ALEJANDRO TORRES MD E Ot Z95.2 PRESENCE OF PROSTHETIC HEART VALVE 03/02/2016 JOSE ALEJANDRO TORRES MD E Ot F02.80 DEMENTIA IN OTH DISEASES CLASSD ELSWHR W 03/02/2016 JOSE ALEJANDRO TORRES MD E Ot F17.210 NICOTINE DEPENDENCE, CIGARETTES, UNCOMPL 03/02/2016 JOSE ALEJANDRO TORRES MD E Ot G31.83 DEMENTIA WITH LEWY BODIES 03/02/2016 JOSE ALEJANDRO TORRES MD E Ot I10 ESSENTIAL (PRIMARY) HYPERTENSION 03/02/2016 JOSE ALEJANDRO TORRES MD E Ot I69.398 OTHER SEQUELAE OF CEREBRAL INFARCTION 03/02/2016 JOSE ALEJANDRO TORRES MD E Ot K21.9 GASTRO-ESOPHAGEAL REFLUX DISEASE WITHOUT 03/02/2016 JOSE ALEJANDRO TORRES MD E Ot M54.2 CERVICALGIA 03/02/2016 JOSE ALEJANDRO TORRES MD E Ot N40.0 ENLARGED PROSTATE WITHOUT LOWER URINARY 03/02/2016 JOSE ALEJANDRO TORRES MD E Ot R26.81 UNSTEADINESS ON FEET 03/02/2016 JOSE ALEJANDRO TORRES MD E Ot R41.0 DISORIENTATION, UNSPECIFIED 03/02/2016 JOSE ALEJANDRO TORRES MD E Ot R53.1 WEAKNESS 03/02/2016 JOSE ALEJANDRO TORRES MD E Ot T42.75XD ADVERSE EFFECT OF UNSP ANTIEPLPTC AND SE 03/02/2016 JOSE ALEJANDRO TORRES MD E Ot Z95.1 PRESENCE OF AORTOCORONARY BYPASS GRAFT 03/02/2016 JOSE ALEJANDRO TORRES MD E Ot Z95.2 PRESENCE OF PROSTHETIC HEART VALVE 03/09/2016 JOSE ALEJANDRO TORRES MD E Ot F02.80 DEMENTIA IN OTH DISEASES CLASSD ELSWHR W 03/09/2016 JOSE ALEJANDRO TORRES MD E Ot F17.210 NICOTINE DEPENDENCE, CIGARETTES, UNCOMPL 03/09/2016 JOSE ALEJANDRO TORRES MD E Ot G31.83 DEMENTIA WITH LEWY BODIES 03/09/2016 JOSE ALEJANDRO TORRES MD E Ot I10 ESSENTIAL (PRIMARY) HYPERTENSION 03/09/2016 TUCKER TORRES MDIC E Ot I63.9 CEREBRAL INFARCTION, UNSPECIFIED 03/09/2016 TUCKER TORRES MDIC E Ot I69.398 OTHER SEQUELAE OF CEREBRAL INFARCTION 03/09/2016 JOSE ALEJANDRO TORRES MD E Ot K21.9 GASTRO-ESOPHAGEAL REFLUX DISEASE WITHOUT 03/09/2016 TUCKER TORRES MDIC E Ot K59.00 CONSTIPATION, UNSPECIFIED 03/09/2016 JOSE ALEJANDRO TORRES MD E Ot M47.892 OTHER SPONDYLOSIS, CERVICAL REGION 03/09/2016 JOSE ALEJANDRO TORRES MD E Ot M54.2 CERVICALGIA 03/09/2016 JOSE ALEJANDRO TORRES MD E Ot N32.81 OVERACTIVE BLADDER 03/09/2016 JOSE ALEJANDRO TORRES MD E Ot N39.0 URINARY TRACT INFECTION, SITE NOT SPECIF 03/09/2016 JOSE ALEJANDRO TORRES MD E Ot N40.1 ENLARGED PROSTATE WITH LOWER URINARY TRA 03/09/2016 JOSE ALEJANDRO TORRES MD E Ot R26.0 ATAXIC GAIT 03/09/2016 JOSE ALEJANDRO TORRES MD E Ot R26.81 UNSTEADINESS ON FEET 03/09/2016 JOSE ALEJANDRO TORRES MD E Ot R32 UNSPECIFIED URINARY INCONTINENCE 03/09/2016 JOSE ALEJANDRO TORRES MD Ot R33.9 RETENTION OF URINE, UNSPECIFIED 03/09/2016 JOSE ALEJANDRO TORRES MD E Ot R41.0 DISORIENTATION, UNSPECIFIED 03/09/2016 JOSE ALEJANDRO TORRES MD E Ot R41.4 NEUROLOGIC NEGLECT SYNDROME 03/09/2016 JOSE ALEJANDRO TORRES MD E Ot R53.1 WEAKNESS 03/09/2016 JOSE ALEJANDRO TORRES MD E Ot T42.75XD ADVERSE EFFECT OF UNSP ANTIEPLPTC AND SE 03/09/2016 JOSE ALEJANDRO TORRES MD E Ot Z95.1 PRESENCE OF AORTOCORONARY BYPASS GRAFT 03/09/2016 JOSE ALEJANDRO TORRES MD E Ot Z95.2 PRESENCE OF PROSTHETIC HEART VALVE 03/11/2016 JOSE ALEJANDRO TORRES MD E Ot F02.80 DEMENTIA IN OT DISEASES CLASSD ELSWHR W 03/11/2016 JOSE ALEJANDRO TORRES MD E Ot F17.210 NICOTINE DEPENDENCE, CIGARETTES, UNCOMPL 03/11/2016 TUCKER TORRES MDIC E Ot G31.83 DEMENTIA WITH LEWY BODIES 03/11/2016 JOSE ALEJANDRO TORRES MD E Ot I10 ESSENTIAL (PRIMARY) HYPERTENSION 03/11/2016 JOSE ALEJANDRO TORRES MD E Ot I63.9 CEREBRAL INFARCTION, UNSPECIFIED 03/11/2016 JOSE ALEJANDRO TORRES MD E Ot I69.398 OTHER SEQUELAE OF CEREBRAL INFARCTION 03/11/2016 JOSE ALEJANDRO TORRES MD E Ot K21.9 GASTRO-ESOPHAGEAL REFLUX DISEASE WITHOUT 03/11/2016 JOSE ALEJANDRO TORRES MD E Ot K59.00 CONSTIPATION, UNSPECIFIED 03/11/2016 JOSE ALEJANDRO TORRES MD E Ot M47.892 OTHER SPONDYLOSIS, CERVICAL REGION 03/11/2016 JOSE ALEJANDRO TORRES MD E Ot M54.2 CERVICALGIA 03/11/2016 JOSE ALEJANDRO TORRES MD Ot N32.81 OVERACTIVE BLADDER 03/11/2016 JOSE ALEJANDRO TORRES MD Ot N39.0 URINARY TRACT INFECTION, SITE NOT SPECIF 03/11/2016 JOSE ALEJANDRO TORRES MD E Ot N40.1 ENLARGED PROSTATE WITH LOWER URINARY TRA 03/11/2016 JOSE ALEJANDRO TORRES MD Ot R26.0 ATAXIC GAIT 03/11/2016 JOSE ALEJANDRO TORRES MD Ot R26.81 UNSTEADINESS ON FEET 03/11/2016 JOSE ALEJANDRO TORRES MD E Ot R32 UNSPECIFIED URINARY INCONTINENCE 03/11/2016 JOSE ALEJANDRO TORRES MD Ot R33.9 RETENTION OF URINE, UNSPECIFIED 03/11/2016 JOSE ALEJANDRO TORRES MD E Ot R41.0 DISORIENTATION, UNSPECIFIED 03/11/2016 JOSE ALEJANDRO TORRES MD E Ot R41.4 NEUROLOGIC NEGLECT SYNDROME 03/11/2016 JOSE ALEJANDRO TORRES MD E Ot R53.1 WEAKNESS 03/11/2016 JOSE ALEJANDRO TORRES MD E Ot T42.75XD ADVERSE EFFECT OF UNSP ANTIEPLPTC AND SE 03/11/2016 JOSE ALEJANDRO TORRES MD E Ot Z95.1 PRESENCE OF AORTOCORONARY BYPASS GRAFT 03/11/2016 JOSE ALEJANDRO TORRES MD E Ot Z95.2 PRESENCE OF PROSTHETIC HEART VALVE 03/11/2016 JOSE ALEJANDRO TORRES MD E Ot F02.80 DEMENTIA IN OTH DISEASES CLASSD ELSWHR W 03/11/2016 JOSE ALEJANDRO TORRES MD E Ot F17.210 NICOTINE DEPENDENCE, CIGARETTES, UNCOMPL 03/11/2016 JOSE ALEJANDRO TORRES MD E Ot G31.83 DEMENTIA WITH LEWY BODIES 03/11/2016 JOSE ALEJANDRO TORRES MD E Ot I10 ESSENTIAL (PRIMARY) HYPERTENSION 03/11/2016 JOSE ALEJANDRO TORRES MD E Ot I63.9 CEREBRAL INFARCTION, UNSPECIFIED 03/11/2016 JOSE ALEJANDRO TORRES MD E Ot I69.398 OTHER SEQUELAE OF CEREBRAL INFARCTION 03/11/2016 JOSE ALEJANDRO TORRES MD E Ot K21.9 GASTRO-ESOPHAGEAL REFLUX DISEASE WITHOUT 03/11/2016 JOSE ALEJANDRO TORRES MD E Ot K59.00 CONSTIPATION, UNSPECIFIED 03/11/2016 JOSE ALEJANDRO TORRES MD E Ot M47.892 OTHER SPONDYLOSIS, CERVICAL REGION 03/11/2016 JOSE ALEJANDRO TORRES MD Ot M54.2 CERVICALGIA 03/11/2016 JOSE ALEJANDRO TORRES MD Ot N32.81 OVERACTIVE BLADDER 03/11/2016 JOSE ALEJANDRO TORRES MD Ot N39.0 URINARY TRACT INFECTION, SITE NOT SPECIF 03/11/2016 JOSE ALEJANDRO TORRES MD Ot N40.1 ENLARGED PROSTATE WITH LOWER URINARY TRA 03/11/2016 JOSE ALEJANDRO TORRES MD Ot R26.0 ATAXIC GAIT 03/11/2016 JOSE ALEJANDRO TORRES MD Ot R26.81 UNSTEADINESS ON FEET 03/11/2016 JOSE ALEJANDRO TORRES MD Ot R32 UNSPECIFIED URINARY INCONTINENCE 03/11/2016 JOSE ALEJANDRO TORRES MD Ot R33.9 RETENTION OF URINE, UNSPECIFIED 03/11/2016 JOSE ALEJANDRO TORRES MD Ot R41.0 DISORIENTATION, UNSPECIFIED 03/11/2016 JOSE ALEJANDRO TORRES MD Ot R41.4 NEUROLOGIC NEGLECT SYNDROME 03/11/2016 JOSE ALEJANDRO TORRES MD Ot R53.1 WEAKNESS 03/11/2016 JOSE ALEJANDRO TORRES MD Ot T42.75XD ADVERSE EFFECT OF UNSP ANTIEPLPTC AND SE 03/11/2016 JOSE ALEJANDRO TORRES MD Ot Z95.1 PRESENCE OF AORTOCORONARY BYPASS GRAFT 03/11/2016 JOSE ALEJANDRO TORRES MD Ot Z95.2 PRESENCE OF PROSTHETIC HEART VALVE 04/11/2016 KAYLEN KIM DO Ot I61.8 OTHER NONTRAUMATIC INTRACEREBRAL HEMORRH 04/11/2016 KYALEN KIM DO, Ot R51 HEADACHE 04/11/2016 KAYLEN KIM DO, Ot R79.1 ABNORMAL COAGULATION PROFILE 04/11/2016 KAYLEN KIM DO, Ot Z79.01 PARKING ENFORCEMENT MANAGER (CURRENT) USE OF ANTICOAGULANT 04/11/2016 KAYLEN KIM DO, Ot Z86.73 PRSNL HX OF TIA (TIA), AND CEREB INFRC W 04/14/2016 KAYLEN KIM DO, Ot I61.8 OTHER NONTRAUMATIC INTRACEREBRAL HEMORRH 04/14/2016 KAYLEN KIM DO, Ot R51 HEADACHE 04/14/2016 KAYLEN KIM DO, Ot R79.1 ABNORMAL COAGULATION PROFILE 04/14/2016 KAYLEN KIM DO, Ot Z79.01 PARKING ENFORCEMENT MANAGER (CURRENT) USE OF ANTICOAGULANT 04/14/2016 KAYLEN KIM DO, Ot Z86.73 PRSNL HX OF TIA (TIA), AND CEREB INFRC W 05/04/2016 MELISSA HARDY MD, Ot G20 PARKINSON'S DISEASE 05/04/2016 MELISSA HARDY MD, Ot I44.7 LEFT BUNDLE-BRANCH BLOCK, UNSPECIFIED 05/04/2016 MELISSA HARDY MD, Ot J44.9 CHRONIC OBSTRUCTIVE PULMONARY DISEASE, U 05/04/2016 MELISSA HARDY MD, Ot M25.532 PAIN IN LEFT WRIST 05/04/2016 MELISSA HARDY MD, Ot R50.9 FEVER, UNSPECIFIED 05/04/2016 MELISSA HARDY MD, Ot Z79.01 PARKING ENFORCEMENT MANAGER (CURRENT) USE OF ANTICOAGULANT 05/04/2016 MELISSA HARDY MD, Ot Z79.82 PARKING ENFORCEMENT MANAGER (CURRENT) USE OF ASPIRIN 05/04/2016 MELISSA HARDY MD, Ot Z79.899 OTHER HALF-WAY (CURRENT) DRUG THERAPY 05/04/2016 MELISSA HARDY MD, Ot Z86.73 PRSNL HX OF TIA (TIA), AND CEREB INFRC W 05/04/2016 MELISSA HARDY MD, Ot Z95.1 PRESENCE OF AORTOCORONARY BYPASS GRAFT 05/04/2016 MELISSA HARDY MD, Ot Z95.2 PRESENCE OF PROSTHETIC HEART VALVE 11/05/2016 VINCENT WHEAT MD Ot R53.1 WEAKNESS 11/26/2016 VINCENT WHEAT MD, Ot R53.1 WEAKNESS 03/24/2017 VINCENT WHEAT MD, Ot N39.0 URINARY TRACT INFECTION, SITE NOT SPECIF 04/13/2017 VINCENT WHEAT MD, Ot N39.0 URINARY TRACT INFECTION, SITE NOT SPECIF 06/22/2017 VINCENT WHEAT MD, Ot R41.82 ALTERED MENTAL STATUS, UNSPECIFIED 04/14/2018 VINCENT WHEAT MD, Ot R45.1 RESTLESSNESS AND AGITATION 05/06/2018 VINCENT WHEAT MD, Ot R45.1 RESTLESSNESS AND AGITATION 09/12/2018 LANNY WALLACE DO Ot M62.81 MUSCLE WEAKNESS (GENERALIZED) 09/12/2018 LANNY WALLACE DO Ot R13.10 DYSPHAGIA, UNSPECIFIED 09/12/2018 LANNY WALLACE DO Ot R26.81 UNSTEADINESS ON FEET 09/12/2018 WALLACE DO, LANNY K Ot R41.0 DISORIENTATION, UNSPECIFIED 09/12/2018 WALLACE DO, LANNY K Ot Z53.9 PROCEDURE AND TREATMENT NOT CARRIED OUT, 09/13/2018 WALLACE DO, LANNY K Ot M62.81 MUSCLE WEAKNESS (GENERALIZED) 09/13/2018 WALLACE DO, LANNY K Ot R13.10 DYSPHAGIA, UNSPECIFIED 09/13/2018 WALLACE DO, LANNY K Ot R26.81 UNSTEADINESS ON FEET 09/13/2018 WALLACE DO, LANNY K Ot R41.0 DISORIENTATION, UNSPECIFIED 09/13/2018 WALLACE DO, LANNY K Ot M62.81 MUSCLE WEAKNESS (GENERALIZED) 09/13/2018 WALLACE DO, LANNY K Ot R13.10 DYSPHAGIA, UNSPECIFIED 09/13/2018 WALLACE DO, LANNY K Ot R26.81 UNSTEADINESS ON FEET 09/13/2018 WALLACE DO, LANNY K Ot R41.0 DISORIENTATION, UNSPECIFIED Procedures There is no data. Results Test Result Range PT panel in platelet poor plasma by coagulation assay - 03/06/16 06:27 Prothrombin time (PT) in platelet poor plasma by coagulation assay 36.3 s 12.2-14.7 INR in platelet poor plasma or blood by coagulation assay 3.6 0.8-1.4 PT panel in platelet poor plasma by coagulation assay - 03/07/16 06:55 Prothrombin time (PT) in platelet poor plasma by coagulation assay 28.7 s 12.2-14.7 INR in platelet poor plasma or blood by coagulation assay 2.7 0.8-1.4 PT panel in platelet poor plasma by coagulation assay - 03/07/16 14:27 Prothrombin time (PT) in platelet poor plasma by coagulation assay 27.2 s 12.2-14.7 INR in platelet poor plasma or blood by coagulation assay 2.5 0.8-1.4 PT panel in platelet poor plasma by coagulation assay - 03/09/16 07:30 Prothrombin time (PT) in platelet poor plasma by coagulation assay 24.0 s 12.2-14.7 INR in platelet poor plasma or blood by coagulation assay 2.2 0.8-1.4 PT panel in platelet poor plasma by coagulation assay - 03/11/16 05:12 Prothrombin time (PT) in platelet poor plasma by coagulation assay 28.7 s 12.2-14.7 INR in platelet poor plasma or blood by coagulation assay 2.7 0.8-1.4 Complete blood count (CBC) with automated white blood cell (WBC) differential - 04/10/16 23:05 Blood leukocytes automated count (number/volume) 9.8 10*3/uL 4.3-11.0 Blood erythrocytes automated count (number/volume) 3.98 10*6/uL 4.35-5.85 Venous blood hemoglobin measurement (mass/volume) 11.3 g/dL 13.3-17.7 Blood hematocrit (volume fraction) 34 % 40-54 Automated erythrocyte mean corpuscular volume 84 [foz_us] 80-99 Automated erythrocyte mean corpuscular hemoglobin (mass per erythrocyte) 28 pg 25-34 Automated erythrocyte mean corpuscular hemoglobin concentration measurement ( mass/volume) 34 g/dL 32-36 Automated erythrocyte distribution width ratio 13.7 % 10.0-14.5 Automated blood platelet count (count/volume) 304 10*3/uL 130-400 Automated blood platelet mean volume measurement 11.5 [foz_us] 7.4-10.4 Automated blood neutrophils/100 leukocytes 68 % 42-75 Automated blood lymphocytes/100 leukocytes 19 % 12-44 Blood monocytes/100 leukocytes 11 % 0-12 Automated blood eosinophils/100 leukocytes 1 % 0-10 Automated blood basophils/100 leukocytes 0 % 0-10 Blood neutrophils automated count (number/volume) 6.7 10*3 1.8-7.8 Blood lymphocytes automated count (number/volume) 1.9 10*3 1.0-4.0 Blood monocytes automated count (number/volume) 1.0 10*3 0.0-1.0 Automated eosinophil count 0.1 10*3/uL 0.0-0.3 Automated blood basophil count (count/volume) 0.0 10*3/uL 0.0-0.1 PT panel in platelet poor plasma by coagulation assay - 04/10/16 23:05 Prothrombin time (PT) in platelet poor plasma by coagulation assay 31.9 s 12.2-14.7 INR in platelet poor plasma or blood by coagulation assay 3.1 0.8-1.4 Activated partial thromboplastin time (aPTT) in platelet poor plasma bycoagulation assay - 04/10/16 23:05 Activated partial thromboplastin time (aPTT) in platelet poor plasma bycoagulation assay 44 s 24-35 Comprehensive metabolic panel - 04/10/16 23:05 Serum or plasma sodium measurement (moles/volume) 142 mmol/L 135-145 Serum or plasma potassium measurement (moles/volume) 3.0 mmol/L 3.6-5.0 Serum or plasma chloride measurement (moles/volume) 104 mmol/L 98-107 Carbon dioxide 21 mmol/L 21-32 Serum or plasma anion gap determination (moles/volume) 17 mmol/L 5-14 Serum or plasma urea nitrogen measurement (mass/volume) 13 mg/dL 7-18 Serum or plasma creatinine measurement (mass/volume) 0.85 mg/dL 0.60-1.30 Serum or plasma urea nitrogen/creatinine mass ratio 15 NRG Serum or plasma creatinine measurement with calculation of estimated glomerular filtration rate > NRG Serum or plasma glucose measurement (mass/volume) 105 mg/dL 70-105 Serum or plasma calcium measurement (mass/volume) 6.3 mg/dL 8.5-10.1 Serum or plasma total bilirubin measurement (mass/volume) 0.5 mg/dL 0.1-1.0 Serum or plasma alkaline phosphatase measurement (enzymatic activity/volume) 48 U/L 40-136 Serum or plasma aspartate aminotransferase measurement (enzymatic activity/ volume) 21 U/L 5-34 Serum or plasma alanine aminotransferase measurement (enzymatic activity/volume ) 8 U/L 0-55 Serum or plasma protein measurement (mass/volume) 6.0 g/dL 6.4-8.2 Serum or plasma albumin measurement (mass/volume) 3.1 g/dL 3.2-4.5 Serum or plasma troponin i.cardiac measurement (mass/volume) - 04/10/16 23:05 Serum or plasma troponin i.cardiac measurement (mass/volume) < ng/ mL <0.30 Complete blood count (CBC) with automated white blood cell (WBC) differential - 05/04/16 11:59 Blood leukocytes automated count (number/volume) 10.9 10*3/uL 4.3-11.0 Blood erythrocytes automated count (number/volume) 4.46 10*6/uL 4.35-5.85 Venous blood hemoglobin measurement (mass/volume) 12.0 g/dL 13.3-17.7 Blood hematocrit (volume fraction) 36 % 40-54 Automated erythrocyte mean corpuscular volume 82 [foz_us] 80-99 Automated erythrocyte mean corpuscular hemoglobin (mass per erythrocyte) 27 pg 25-34 Automated erythrocyte mean corpuscular hemoglobin concentration measurement ( mass/volume) 33 g/dL 32-36 Automated erythrocyte distribution width ratio 14.7 % 10.0-14.5 Automated blood platelet count (count/volume) 286 10*3/uL 130-400 Automated blood platelet mean volume measurement 11.1 [foz_us] 7.4-10.4 Automated blood neutrophils/100 leukocytes 72 % 42-75 Automated blood lymphocytes/100 leukocytes 12 % 12-44 Blood monocytes/100 leukocytes 15 % 0-12 Automated blood eosinophils/100 leukocytes 0 % 0-10 Automated blood basophils/100 leukocytes 0 % 0-10 Blood neutrophils automated count (number/volume) 7.9 10*3 1.8-7.8 Blood lymphocytes automated count (number/volume) 1.3 10*3 1.0-4.0 Blood monocytes automated count (number/volume) 1.6 10*3 0.0-1.0 Automated eosinophil count 0.0 10*3/uL 0.0-0.3 Automated blood basophil count (count/volume) 0.0 10*3/uL 0.0-0.1 PT panel in platelet poor plasma by coagulation assay - 05/04/16 11:59 Prothrombin time (PT) in platelet poor plasma by coagulation assay 18.7 s 12.2-14.7 INR in platelet poor plasma or blood by coagulation assay 1.6 0.8-1.4 Activated partial thromboplastin time (aPTT) in platelet poor plasma bycoagulation assay - 05/04/16 11:59 Activated partial thromboplastin time (aPTT) in platelet poor plasma bycoagulation assay 34 s 24-35 Comprehensive metabolic panel - 05/04/16 11:59 Serum or plasma sodium measurement (moles/volume) 137 mmol/L 135-145 Serum or plasma potassium measurement (moles/volume) 3.4 mmol/L 3.6-5.0 Serum or plasma chloride measurement (moles/volume) 104 mmol/L 98-107 Carbon dioxide 21 mmol/L 21-32 Serum or plasma anion gap determination (moles/volume) 12 mmol/L 5-14 Serum or plasma urea nitrogen measurement (mass/volume) 10 mg/dL 7-18 Serum or plasma creatinine measurement (mass/volume) 0.85 mg/dL 0.60-1.30 Serum or plasma urea nitrogen/creatinine mass ratio 12 NRG Serum or plasma creatinine measurement with calculation of estimated glomerular filtration rate > NRG Serum or plasma glucose measurement (mass/volume) 148 mg/dL 70-105 Serum or plasma calcium measurement (mass/volume) 8.1 mg/dL 8.5-10.1 Serum or plasma total bilirubin measurement (mass/volume) 0.4 mg/dL 0.1-1.0 Serum or plasma alkaline phosphatase measurement (enzymatic activity/volume) 68 U/L 40-136 Serum or plasma aspartate aminotransferase measurement (enzymatic activity/ volume) 15 U/L 5-34 Serum or plasma alanine aminotransferase measurement (enzymatic activity/volume ) 8 U/L 0-55 Serum or plasma protein measurement (mass/volume) 6.2 g/dL 6.4-8.2 Serum or plasma albumin measurement (mass/volume) 3.2 g/dL 3.2-4.5 Serum or plasma troponin i.cardiac measurement (mass/volume) - 05/04/16 11:59 Serum or plasma troponin i.cardiac measurement (mass/volume) < ng/ mL <0.30 Serum or plasma C reactive protein measurement (mass/volume) - 05/04/16 11:59 Serum or plasma C reactive protein measurement (mass/volume) 10.31 mg/dL 0.00-0.50 Arterial blood gas measurement - 11/04/16 11:20 Blood pCO2 38 mm[Hg] 35-45 Blood pO2 83 mm[Hg] 79-93 Arterial blood bicarbonate measurement (moles/volume) 25 mmol/L 23-27 Arterial blood base excess by calculation 1.6 mmol/L -2.5 -2.5 Arterial blood oxygen saturation measurement 97 % 94-100 * Inhaled oxygen flow rate ROOM AIR NRG Arterial blood pH measurement with patient temperature correction 7.44 7.37-7.43 Arterial blood carbon dioxide, total measurement (moles/volume) 26.6 mmol/L 21.0-31.0 Body site PERIPHERAL NRG Assessment of wrist artery patency prior to arterial puncture NA NRG Setting of ventilation mode NO NRG Measurement of body temperature 98.6 NRG Complete urinalysis with reflex to culture - 03/20/17 20:03 Urine color determination YELLOW NRG Urine clarity determination SLIGHTLY CLOUDY NRG Urine pH measurement by test strip 5 5-9 Specific gravity of urine by test strip 1.015 1.016- 1.022 Urine protein assay by test strip, semi-quantitative NEGATIVE NEGATIVE Urine glucose detection by automated test strip NEGATIVE NEGATIVE Erythrocytes detection in urine sediment by light microscopy NEGATIVE NEGATIVE Urine ketones detection by automated test strip NEGATIVE NEGATIVE Urine nitrite detection by test strip POSITIVE NEGATIVE Urine total bilirubin detection by test strip NEGATIVE NEGATIVE Urine urobilinogen measurement by automated test strip (mass/volume) NORMAL NORMAL Urine leukocyte esterase detection by dipstick 2+ NEGATIVE Automated urine sediment erythrocyte count by microscopy (number/high power field) NONE NRG Automated urine sediment leukocyte count by microscopy (number/high power field ) > [HPF] NRG Bacteria detection in urine sediment by light microscopy MODERATE NRG Squamous epithelial cells detection in urine sediment by light microscopy 2-5 NRG Crystals detection in urine sediment by light microscopy NONE NRG Casts detection in urine sediment by light microscopy NONE NRG Mucus detection in urine sediment by light microscopy NEGATIVE NRG Complete urinalysis with reflex to culture YES NRG Bacterial urine culture - 03/20/17 20:03 Bacterial urine culture [id number] NRG COLONY COUNT >100,000/ML NRG FTX;REPORTABLE SENSITIVITY REPORTED 03/21 15:32 NR Bacterial susceptibility panel - 03/20/17 20:03 Gentamicin susceptibility test by minimum inhibitory concentration < = NRG Trimethoprim/sulfamethoxazole susceptibility test by minimum inhibitoryconcentration <= NRG Ampicillin susceptibility test by minimum inhibitory concentration < = NRG Tobramycin susceptibility test by minimum inhibitory concentration < = NRG Cefazolin susceptibility test by minimum inhibitory concentration < = NRG Ceftriaxone susceptibility test by minimum inhibitory concentration <= NRG Ampicillin/sulbactam susceptibility test by minimum inhibitory concentration <= NRG Piperacillin/tazobactam susceptibility test by minimum inhibitory concentration <= NRG Ciprofloxacin susceptibility test by minimum inhibitory concentration <= NRG Meropenem susceptibility test by minimum inhibitory concentration < = NRG Nitrofurantoin susceptibility test by minimum inhibitory concentration <= NRG Aztreonam susceptibility test by minimum inhibitory concentration < = NRG Extended spectrum beta lactamase (ESBL) producing bacteria susceptibility test by minimum inhibitory concentration - NR Complete urinalysis with reflex to culture - 05/29/17 21:00 Urine color determination YELLOW NRG Urine clarity determination CLEAR NRG Urine pH measurement by test strip 5 5-9 Specific gravity of urine by test strip 1.020 1.016- 1.022 Urine protein assay by test strip, semi-quantitative NEGATIVE NEGATIVE Urine glucose detection by automated test strip NEGATIVE NEGATIVE Erythrocytes detection in urine sediment by light microscopy NEGATIVE NEGATIVE Urine ketones detection by automated test strip NEGATIVE NEGATIVE Urine nitrite detection by test strip NEGATIVE NEGATIVE Urine total bilirubin detection by test strip NEGATIVE NEGATIVE Urine urobilinogen measurement by automated test strip (mass/volume) NORMAL NORMAL Urine leukocyte esterase detection by dipstick NEGATIVE NEGATIVE Automated urine sediment erythrocyte count by microscopy (number/high power field) RARE NRG Automated urine sediment leukocyte count by microscopy (number/high power field ) [HPF] NRG Bacteria detection in urine sediment by light microscopy NEGATIVE NRG Squamous epithelial cells detection in urine sediment by light microscopy 25-50 NRG Crystals detection in urine sediment by light microscopy NONE NRG Casts detection in urine sediment by light microscopy PRESENT NRG Mucus detection in urine sediment by light microscopy NEGATIVE NRG Complete urinalysis with reflex to culture NO NRG Hyaline casts detection in urine sediment by light microscopy RARE NRG Renal epithelial cells detection in urine sediment by light microscopy NONE NRG Complete urinalysis with reflex to culture - 04/12/18 16:45 Urine color determination YELLOW NRG Urine clarity determination CLEAR NRG Urine pH measurement by test strip 6 5-9 Specific gravity of urine by test strip 1.020 1.016- 1.022 Urine protein assay by test strip, semi-quantitative NEGATIVE NEGATIVE Urine glucose detection by automated test strip NEGATIVE NEGATIVE Erythrocytes detection in urine sediment by light microscopy NEGATIVE NEGATIVE Urine ketones detection by automated test strip NEGATIVE NEGATIVE Urine nitrite detection by test strip NEGATIVE NEGATIVE Urine total bilirubin detection by test strip NEGATIVE NEGATIVE Urine urobilinogen measurement by automated test strip (mass/volume) NORMAL NORMAL Urine leukocyte esterase detection by dipstick NEGATIVE NEGATIVE Automated urine sediment erythrocyte count by microscopy (number/high power field) NONE NRG Automated urine sediment leukocyte count by microscopy (number/high power field ) NONE NRG Bacteria detection in urine sediment by light microscopy NONE NRG Squamous epithelial cells detection in urine sediment by light microscopy RARE NRG Crystals detection in urine sediment by light microscopy NONE NRG Casts detection in urine sediment by light microscopy NONE NRG Mucus detection in urine sediment by light microscopy NEGATIVE NRG Complete urinalysis with reflex to culture NO NRG Influenza virus A and B antigen detection - 09/11/18 14:20 FLU RESULT NEGATIVE FOR INFLUENZA A AND B ANTIGENS BY IA NRG Encounters ACCT No. Visit Date/Time Discharge Status Pt. Type Provider Facility Loc./Unit Complaint [id number] 09/13/2018 14:28:00 09/13/2018 14:28:00 CAN Preadmit LANNY WALLACE DO [facility] FLU A/B [id number] 09/11/2018 12:52:00 09/11/2018 23:59:59 CLS Outpatient LANNY WALLACE DO [facility] [id number] 08/16/2018 09:34:00 08/16/2018 23:59:59 CLS Preadmit VINCENT WHEAT MD [facility] RAD SCREENING [id number] 06/13/2018 14:49:00 06/13/2018 23:59:59 CLS Preadmit VINCENT WHEAT MD [facility] RAD SCREENING [id number] 04/12/2018 19:14:00 04/12/2018 23:59:59 CLS Outpatient VINCENT WHEAT MD [facility] NEEDS UA DUE TO INCREASED EMOTIONAL AGITATION [id number] 05/29/2017 21:31:00 05/29/2017 23:59:59 CLS Outpatient VINCENT WHEAT MD [facility] AMS [id number] 03/20/2017 21:00:00 03/20/2017 23:59:59 CLS Outpatient VINCENT WHEAT MD [facility] UTI [id number] 11/04/2016 11:43:00 11/04/2016 23:59:59 CLS Outpatient VINCENT WHEAT MD [facility] WEAKNESS [id number] 05/04/2016 11:48:00 05/04/2016 14:40:00 DIS Emergency MELISSA HARDY MD [facility] ER IRR HEART RATE [id number] 04/10/2016 23:01:00 04/11/2016 01:52:00 DIS Emergency KAYLEN KIM DO [facility] ER HEADACHE [id number] 02/12/2016 11:57:00 03/11/2016 10:15:00 DIS Inpatient MELISSA RODRIGUEZ, JOSE ALEJANDRO Foley [facility] IRF IRF-HEADACHE WEAKNESS [id number] 02/07/2016 14:00:00 02/12/2016 11:20:00 DIS Inpatient TAWNYA RODRIGUEZ, ANTHONY Hunt [facility] 4TH HEADACHE WEAKNESS [id number] 05/17/2013 14:33:00 05/17/2013 23:59:59 CLS Outpatient [id number] 09/16/2018 15:44:00 ACT Emergency LATRICE RODRIGUEZ, BORIS Nathan [facility] ER N/V/D [id number] 06/01/2017 09:40:00 06/01/2017 23:59:59 CLS Outpatient VINCENT WHEAT MD [facility]
[2018-09-16] MEDS: NS IV 1000 ML 1,000 ML IV SCH ×2 (16:08→16:17)
--- NOTE | 2018-09-16 16:36 | ED GI ---
General Stated Complaint: N/V/D Source of Information: Patient, EMS History of Present Illness Date Seen by Provider: Sep 16, 2018 Time Seen by Provider: 16:33 Initial Comments This 78-year-old white male presents with 2 days of vomiting and diarrhea from the long-term. The patient was brought to the emergency department by EMS. The patient denies oral or rectal bleeding. He denies productive cough. He believes he has had an associated fever. He denies dysuria, frequency, or flank pain. Allergies and Home Medications Allergies Coded Allergies: Iodinated Contrast Media - IV Dye (Verified Allergy, Unknown, 02/07/16) Home Medications Acetaminophen 500 Mg Tablet, 1,000 MG PO Q6H PRN for PAIN, (Reported) Acetaminophen 325 Mg Tablet, 325 MG PO Q4H PRN for PAIN, (Reported) Aspirin 81 Mg Tabec, 81 MG PO DAILY, (Reported) Calcium Carbonate/Vitamin D3 1 Each Tablet, 3 TAB PO BIDPC, (Reported) TAKES 3 (500 MG +D) TABS Carbidopa/Levodopa 1 Each Tablet, 1 TAB PO QID, (Reported) Colestipol HCl 1 Gm Tablet, 1 GM PO BID, (Reported) Divalproex Sodium 125 Mg Tablet.dr, 125 MG PO DAILY, (Reported) Donepezil HCl 10 Mg Tablet, 10 MG PO DAILY, (Reported) Doxazosin Mesylate 4 Mg Tablet, 4 MG PO HS, (Reported) Escitalopram Oxalate 20 Mg Tablet, 20 MG PO DAILY, (Reported) Finasteride 5 Mg Tablet, 5 MG PO DAILY, (Reported) Multivitamin 1 Each Tablet, 1 TAB PO DAILY, (Reported) Pantoprazole Sodium 40 Mg Tablet.dr, 40 MG PO DAILY, (Reported) Polyethylene Glycol 3350 17 Gm Powd.pack, 34 GM PO BID Prescribed by: JOSE ALEJANDRO TORRES on 03/11/16 0847 Prednisone 5 Mg Tablet, 5 MG PO DAILY, (Reported) Prednisone 20 Mg Tab, 20 MG PO DAILY Prescribed by: MELISSA HARDY on 05/04/16 1425 Simvastatin 20 Mg Tablet, 20 MG PO HS, (Reported) Sucralfate 1 Gm Tablet, 1 GM PO ACHS PRN for INDIGESTION Prescribed by: JOSE ALEJANDRO TORRES on 03/11/16 0847 Tramadol HCl 50 Mg Tablet, 50 MG PO Q6H PRN for PAIN Prescribed by: MELISSA HARDY on 05/04/16 1423 Warfarin Sodium 2 Mg Tablet, 4 MG PO [email or web address] Prescribed by: JOSE ALEJANDRO TORRES on 03/11/16 0847 Warfarin Sodium 5 Mg Tablet, 5 MG PO [email or web address] Prescribed by: JOSE ALEJANDRO TORRES on 03/11/16 0847 Patient Home Medication List Home Medication List Reviewed: Yes Review of Systems Review of Systems Constitutional: fever, malaise, weakness EENTM: No Symptoms Reported Respiratory: Cough Cardiovascular: Denies Chest Pain Gastrointestinal: Denies Abdominal Pain; Diarrhea, Vomiting Genitourinary: Denies Burning, Denies Frequency Musculoskeletal: No back pain Skin: No rash Psychiatric/Neurological: No Symptoms Reported Endocrine: No Symptoms Reported Hematologic/Lymphatic: No Symptoms Reported Past Urposbi-Qpnreh-Fojwec Hx Past Med/Social Hx: Reviewed Nursing Past Med/Soc Hx Patient Social History Type Used: Cigarettes Former Smoker, Quit: Aug 09, 2005 Recent Foreign Travel: No Contact w/Someone Who Travel: No Recent Hopitalizations: Yes Immunizations Up To Date Tetanus Booster (TDap): Unknown PED Vaccines UTD: No Date of Pneumonia Vaccine: May 14, 2015 Seasonal Allergies Seasonal Allergies: No Past Medical History Appendectomy, CABG, Gallbladder, Orthopedic, Valve Replacement COPD Currently Using CPAP: No Currently Using BIPAP: No High Cholesterol, Hypertension Parkinson's Disease, Stroke Reproductive Disorders: No Benign Prostatic Hyperpl Gastroesophageal Reflux Chronic Back Pain Adverse Reaction/Blood Tranf: No Family Medical History Cardiovascular disease 19 FATHER 19 MOTHER Colon cancer 19 MOTHER G8 SISTER No Pertinent Family Hx Physical Exam Vital Signs Vital Signs - First Documented 09/16/18 15:46 Temp 96.0 Pulse 71 Resp 20 B/P (MAP) 85/46 (59) Pulse Ox 96 O2 Delivery Room Air Capillary Refill : Height/Weight/BMI Height: 5'9" Weight: 185lbs. 8.0oz. [id number]; 30.3 BMI Method:Stated General Appearance: WD/WN, no apparent distress HEENT: normal ENT inspection Neck: full range of motion, supple Respiratory: lungs clear Cardiovascular: regular rate, rhythm Gastrointestinal: non tender, soft, abnormal bowel sounds (hypoactive) Extremities: non-tender, normal inspection Back: normal inspection Male: normal genitalia Neurologic/Psychiatric: no motor/sensory deficits, alert, normal mood/affect Skin: normal color, warm/dry Progress/Results/Core Measures Results/Orders Lab Results Laboratory Tests Test 09/16/18 16:17 09/16/18 16:25 Range/Units White Blood Count 14.6 H 4.3-11.0 10^3/uL Red Blood Count 4.42 4.35-5.85 10^6/uL Hemoglobin 12.5 L 13.3-17.7 G/DL Hematocrit 37 L 40-54 % Mean Corpuscular Volume 83 80-99 FL Mean Corpuscular Hemoglobin 28 25-34 PG Mean Corpuscular Hemoglobin Concent 34 32-36 G/DL Red Cell Distribution Width 14.7 H 10.0-14.5 % Platelet Count 481 H 130-400 10^3/uL Mean Platelet Volume 9.7 7.4-10.4 FL Neutrophils (%) (Auto) 74 42-75 % Lymphocytes (%) (Auto) 17 12-44 % Monocytes (%) (Auto) 8 0-12 % Eosinophils (%) (Auto) 1 0-10 % Basophils (%) (Auto) 0 0-10 % Neutrophils # (Auto) 10.7 H 1.8-7.8 X 10^3 Lymphocytes # (Auto) 2.5 1.0-4.0 X 10^3 Monocytes # (Auto) 1.2 H 0.0-1.0 X 10^3 Eosinophils # (Auto) 0.1 0.0-0.3 10^3/uL Basophils # (Auto) 0.0 0.0-0.1 10^3/uL Neutrophils % (Manual) 84 % Lymphocytes % (Manual) 14 % Monocytes % (Manual) 1 % Eosinophils % (Manual) 1 % Basophils % (Manual) 0 % Band Neutrophils 0 % Blood Morphology Comment NORMAL Sodium Level 132 L 135-145 MMOL/L Potassium Level 5.2 H 3.6-5.0 MMOL/L Chloride Level 100 98-107 MMOL/L Carbon Dioxide Level 11 L 21-32 MMOL/L Anion Gap 21 H 5-14 MMOL/L Blood Urea Nitrogen 103 *H 7-18 MG/DL Creatinine 9.25 H 0.60-1.30 MG/DL Estimat Glomerular Filtration Rate 6 BUN/Creatinine Ratio 11 Glucose Level 44 *L 70-105 MG/DL Calcium Level 7.8 L 8.5-10.1 MG/DL Corrected Calcium 8.0 L 8.5-10.1 MG/DL Total Bilirubin 0.4 0.1-1.0 MG/DL Aspartate Amino Transf (AST/SGOT) 37 H 5-34 U/L Alanine Aminotransferase (ALT/SGPT) 10 0-55 U/L Alkaline Phosphatase 75 40-136 U/L Total Protein 7.3 6.4-8.2 GM/DL Albumin 3.7 3.2-4.5 GM/DL Lipase 74 8-78 U/L Urine Color YELLOW Urine Clarity SLIGHTLY CLOUDY Urine pH 5 5-9 Urine Specific Bennett 1.025 H 1.016-1.022 Urine Protein 3+ H NEGATIVE Urine Glucose (UA) NEGATIVE NEGATIVE Urine Ketones 1+ H NEGATIVE Urine Nitrite NEGATIVE NEGATIVE Urine Bilirubin 1+ H NEGATIVE Urine Urobilinogen NORMAL NORMAL MG/DL Urine Leukocyte Esterase 3+ H NEGATIVE Urine RBC (Auto) 5+ H NEGATIVE Urine RBC 10-25 H /HPF Urine WBC >100 H /HPF Urine Squamous Epithelial Cells 10-25 H /HPF Urine Crystals PRESENT H /LPF Urine Amorphous Sediment LARGE FERMÍN URATES H /LPF Urine Bacteria LARGE H /HPF Urine Casts NONE /LPF Urine Mucus NEGATIVE /LPF Urine Culture Indicated YES My Orders Orders - BORIS POLLARD MD Cbc With Automated Diff (09/16/18 16:31) Comprehensive Metabolic Panel (09/16/18 16:31) Lipase (09/16/18 16:31) Ua Culture If Indicated (09/16/18 16:31) Ns Iv 1000 Ml (Sodium Chloride 0.9%) (09/16/18 16:45) Manual Differential (09/16/18 16:17) Urine Culture (09/16/18 16:25) D50w (Emergency) Syringe (Dextrose 50% 5 (09/16/18 17:14) Ns Iv 1000 Ml (Sodium Chloride 0.9%) (09/16/18 17:15) D50w (Emergency) Syringe (Dextrose 50% 5 (09/16/18 17:15) Ceftriaxone For Iv Use (Rocephin For I (09/16/18 17:45) Medications Given in ED Current Medications Medications Dose Ordered Sig/Liliana Route Start Time Stop Time Status Last Admin Dose Admin Ceftriaxone Sodium 2000 mg/ Sterile Water 20 ml @ 240 mls/hr ONCE ONCE IV 09/16/18 17:45 2/8/19 17:49 DC 09/16/18 17:47 240 MLS/HR Dextrose 50 ml ONCE ONCE IV 09/16/18 17:15 09/16/18 17:22 DC 09/16/18 17:17 50 ML Sodium Chloride 1,000 ml @ 250 mls/hr Q4H ONCE IV 09/16/18 17:15 09/16/18 21:14 09/16/18 17:10 250 MLS/HR Vital Signs/I&O 09/16/18 15:46 Temp 96.0 Pulse 71 Resp 20 B/P (MAP) 85/46 (59) Pulse Ox 96 O2 Delivery Room Air Progress Progress Note : Time: 17:54 Progress Note The patient's laboratory evaluation demonstrated a BUN of 100 and a creatinine of nearly 10. The patient's glucose was 44 and he was given an amp of D50. The patient's urinalysis was consistent with a UTI. Patient received 2 g of Rocephin. Patient upon presentation emergency department and had a hypotensive state with a systolic of 70 mm. Patient responded to a bolus of fluids 2000 mL. Telephone consultation was undertaken with Viviane Diop and was kind enough to admit the patient in transfer to the ICU. Departure Impression Primary Impression: Renal failure (ARF), acute on chronic Qualified Codes: N17.8 - Other acute kidney failure; N18.5 - Chronic kidney disease, stage 5 Additional Impressions: Hypoglycemia Hypotension Qualified Codes: I95.89 - Other hypotension; E86.1 - Hypovolemia Acute urinary tract infection Disposition: XF [facility] Condition: Improved Transfer Time Spoke to Accepting Phy: 17:[address] Watters at [facility]. Transfer Time: 17:57 Transfer Facility: [facility] Method of Transfer: EMS Departure-Patient Inst. Referrals: VINCENT WHEAT MD (PCP/Family) Primary Care Physician BORIS POLLARD MD Sep 16, 2018 16:36
[2018-09-16 16:44] LABS: CLARITY,URINE SLIGHTLY CLOUDY; COLOR,URINE YELLOW; GLUCOSE, URINE (UA) NEGATIVE (NEGATIVE); KETONES,URINE 1+ (NEGATIVE); LEUKOCYTE ESTERASE ,URINE 3+ (NEGATIVE); NITRITE,URINE NEGATIVE (NEGATIVE); PH,URINE 5 (5-9); PROTEIN,URINE 3+ (NEGATIVE); UROBILINOGEN,URINE NORMAL (NORMAL)
[2018-09-16 16:45] LABS: BASOPHILS % (AUTO) 0 % (0-10); EOSINOPHILS # (AUTO) 0.1 10^3/uL (0.0-0.3); EOSINOPHILS % (AUTO) 1 % (0-10); HEMATOCRIT 37 % (40-54); HEMOGLOBIN 12.5 G/DL (13.3-17.7); LYMPHOCYTES # (AUTO) 2.5 X 10^3 (1.0-4.0); LYMPHOCYTES % (AUTO) 17 % (12-44); MEAN CORPUSCULAR HEMOGLOBIN 28 PG (25-34); MEAN CORPUSCULAR HGB CONC 34 G/DL (32-36); MEAN CORPUSCULAR VOLUME 83 FL (80-99); MEAN PLATELET VOLUME 9.7 FL (7.4-10.4); MONOCYTES # (AUTO) 1.2 X 10^3 (0.0-1.0); MONOCYTES % (AUTO) 8 % (0-12); NEUTROPHILS # (AUTO) 10.7 X 10^3 (1.8-7.8); NEUTROPHILS % (AUTO) 74 % (42-75); PLATELET COUNT 481 10^3/uL (130-400); RED CELL DISTRIBUTION WIDTH 14.7 % (10.0-14.5); WHITE BLOOD COUNT 14.6 10^3/uL (4.3-11.0)
[2018-09-16 16:58] LABS: ALBUMIN 3.7 GM/DL (3.2-4.5); BILIRUBIN,TOTAL 0.4 MG/DL (0.1-1.0); CALCIUM 7.8 MG/DL (8.5-10.1); CREATININE SERUM 9.25 MG/DL (0.60-1.30); POTASSIUM 5.2 MMOL/L (3.6-5.0); TOTAL PROTEIN 7.3 GM/DL (6.4-8.2)
[2018-09-16] MEDS ORDERED: DEXTROSE 50% 50 ML (IMS) SYR ONE (17:14)
[2018-09-16 17:15] LABS: BILIRUBIN,URINE 1+ (NEGATIVE); WBC,URINE >100 /HPF
[2018-09-16] MEDS ORDERED: NS IV 1000 ML 1,000 ML IV ONE (17:15)
[2018-09-16] MEDS ORDERED: DEXTROSE 50% 50 ML (IMS) SYR IV ONE (17:15)
[2018-09-16 17:16] LABS: AMORPHOUS SEDIMENT,UR LARGE AMOR URATES /LPF; BACTERIA,URINE LARGE /HPF
[2018-09-16 17:21] LABS: BAND NEUTROPHILS 0 %; BASOPHILS % (MANUAL) 0 %; EOSINOPHILS % (MANUAL) 1 %; LYMPHOCYTES % (MANUAL) 14 %; MONOCYTES % (MANUAL) 1 %; NEUTROPHILS % (MANUAL) 84 %; RBC MORPH NORMAL
[2018-09-16] MEDS ORDERED: cefTRIAXone FOR IV USE 2,000 MG in WATER (STERILE) FOR INJECTION 20 ML IV ONE (17:45)
--- NOTE | 2018-09-16 18:25 | NUR ---
attempted to call karen to give report at this time. will call back in roughly ten minutes.
[2018-09-16 18:32] VITALS: BP 91/49
[2018-09-16 19:02] VITALS: BP 92/45
== END 2018-09-16 19:02 | disposition short-term general hospital (02) ==
LOC: EDUNIT# 15:43 → ER 15:44
DX: N17.9 Acute kidney failure, unspecified (principal); I12.9 Hypertensive chronic kidney disease with stage 1 through stage 4 chronic kidney disease, or unspecified chronic kidney disease; N18.9 Chronic kidney disease, unspecified; I95.9 Hypotension, unspecified; E16.2 Hypoglycemia, unspecified; N39.0 Urinary tract infection, site not specified; J44.9 Chronic obstructive pulmonary disease, unspecified; E78.00 Pure hypercholesterolemia, unspecified; G20 Parkinson's disease; Z86.73 Personal history of transient ischemic attack (TIA), and cerebral infarction without residual deficits; K21.9 Gastro-esophageal reflux disease without esophagitis; Z91.041 Radiographic dye allergy status; Z79.82 Long term (current) use of aspirin; Z79.01 Long term (current) use of anticoagulants; Z87.891 Personal history of nicotine dependence; Z90.49 Acquired absence of other specified parts of digestive tract; Z95.1 Presence of aortocoronary bypass graft
CPT/HCPCS: 36415; 51702; 80053; 81000; 82962; 83690; 85007; 85027; 87040; 87077; 87088; 87186